=== PATIENT | male | born 1970 | race Caucasian/White ===

== ENCOUNTER 2021-07-04 17:33 | Inpatient (IN) | payer MEDICAID, SELFPAY ==
--- NOTE | ~2021-07-04 | US_ITS ---
EXAMINATION: US VENOUS ULTRASOUND WITH DOPPLER LOWER EXTREMITY, BILATERAL CLINICAL INFORMATION: Bilateral leg swelling COMPARISON: None TECHNIQUE: Ultrasound of the deep veins is performed from the hip to the calf with compression sonography and color and pulse Doppler assessment. Spectral analysis with color-flow imaging is performed. FINDINGS: RIGHT: There is normal venous compression and respiratory variation and augmented flow. The visualized common femoral vein, superficial femoral vein, profunda femoral vein, popliteal vein, and the trifurcation region shows no evidence of deep venous thrombosis. There is no significant popliteal fossa cyst. LEFT: There is normal venous compression and respiratory variation and augmented flow. The visualized common femoral vein, superficial femoral vein, profunda femoral vein, popliteal vein, and the trifurcation region shows no evidence of deep venous thrombosis. There is no significant popliteal fossa cyst. If the patient's symptoms persist, followup ultrasound in 5 days 7 days might be of value to exclude proximal propagation from a non-visualized calf vein. US/US venous duplex LE BI IMPRESSION: No DVT demonstrated in either lower extremity.
--- NOTE | ~2021-07-04 | XR_ITS ---
EXAMINATION: XR CHEST CLINICAL INFORMATION: Irregular heart rate. COMPARISON: None TECHNIQUE: 2 AP views of the chest are submitted. FINDINGS: No significant abnormality is noted involving the heart, lungs, mediastinum, bony thorax or soft tissues. XR/XR chest 1V IMPRESSION: Unremarkable examination.
[2021-07-04 17:42] VITALS: BP 140/95; PULSE 103; RESP 18; TEMP 36.3; O2SAT 97; BMI 36.4
--- NOTE | 2021-07-04 17:47 | ECG_ITS ---
Test Reason : HEART RATE Blood Pressure : / mmHG Vent. Rate : 113 BPM Atrial Rate : 000 BPM P-R Int : 000 ms QRS Dur : 094 ms QT Int : 364 ms P-R-T Axes : 000 176 039 degrees QTc Int : 499 ms Atrial fibrillation with rapid ventricular response Right axis deviation Abnormal ECG No previous ECGs available Referred By: Generic ED Physician Electronically Signed By:Celio Ndiaye
[2021-07-04 18:02] LABS: MANUAL DIFF FLAG NO
[2021-07-04 18:05] LABS: Basophils Percent Auto 0.2 % (0-2); Eosinophils Absolute Auto 0.3 X10*3/uL (0.0-0.4); Eosinophils Percent Auto 3.8 % (0-4); Hematocrit 46.4 % (42.0-52.0); Hemoglobin 15.3 g/dl (14.0-18.0); Imm Gran Abs Auto 0.02 X10*3/uL (0.00-0.03); Imm Gran Pct Auto 0.2 % (0.0-0.4); Lymphocytes Absolute Auto 1.7 X10*3/uL (1.2-4.9); Lymphocytes Percent Auto 20.1 % (20-40); Mean Corpuscular Hemoglobin 32.2 pg (27.0-33.0); Mean Corpuscular Volume 97.7 fL (80.0-98.0); Mean Platelet Volume 9.5 fL (9.4-12.4); Monocytes Absolute Auto 0.8 X10*3/uL (0.1-1.2); Monocytes Percent Auto 9.8 % (2-11); Neutrophils Absolute Auto 5.5 x10*3/uL (2.0-8.3); Neutrophils Percent Auto 65.9 % (45-73); Platelet Count 184 X10*3/uL (160-400); Red Blood Count 4.75 X10*6/uL (4.60-5.80); Red Cell Distribution Width 13.9 % (11.0-16.0); White Blood Count 8.4 X10*3/uL (4.8-10.8)
--- NOTE | 2021-07-04 18:14 | ED.ARRPALP ---
HPI - Arrhythmia/Palpitations General Chief Complaint: Arrhythmia/Palpitations Stated Complaint: feet swollen Time Seen by Provider: 07/04/21 18:06 Source: patient Mode of arrival: ambulatory Limitations: no limitations History of Present Illness HPI narrative: 51-year-old male presents emergency department complaining of bilateral foot swelling. Patient has not seen a doctor for 20 or 30 years he states that his girlfriend told he need to come in to be evaluated. Patient states he has noticed swelling has increased he is now having some shortness of breath at night that wakes him up sleep. He denies fevers or chills on arrival patient was found to be in AFib but was not terribly tachycardic in the 1 100s to 110s. 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 Related Data Home Medications Medication Instructions Recorded Confirmed diphenhydramine HCl 25 mg capsule 25 mg PO BEDTIME PRN 07/04/21 07/04/21 (Benadryl) melatonin 5 mg tablet 35 mg PO BEDTIME PRN 07/04/21 07/04/21 Allergies Allergy/AdvReac Type Severity Reaction Status Date / Time No Known Allergies Allergy Verified 07/04/21 17:41 Review of Systems Review of Systems: Review of systems: General: Patient denies any fever chills recent illness or falls Musculoskeletal: Denies back pain or body aches or other injuries HEENT: denies headache, runny nose, ear pain Respiratory: denies shortness of breath, cough Cardiovascular: no chest pain or palpitations : denies dysuria, frequency Abdomen: no nausea vomiting denies abdominal pain Extremities: Bilateral lower leg swelling, no pain Skin: no diaphoresis Yes all other systems are reviewed and are negative PMFSH Social History Social History Advance Directives: No Advance Directives Information Provided: No Physical Exam Vital Signs: Vital Signs: Last Vital Signs Temp 98.5 F 07/04/21 20:07 Pulse 94 07/04/21 20:07 Resp 24 H 07/04/21 20:07 BP 132/92 H 07/04/21 20:07 Pulse Ox 97 07/04/21 20:07 BMI result Body Mass Index 36.4 General: Well-appearing well-nourished in no signs of distress HEENT: Normocephalic atraumatic Neck: No signs of JVD, no masses no tenderness or lymphadenopathy Cardiovascular: Regular rate and rhythm Respiratory: Clear to auscultation bilaterally Abdomen: Soft nontender no masses . Extremities: Normal pedal pulses 2+ edema bilaterally from the foot to knee Skin: Dry warm no rashes Back: No tenderness full ROM MDM - Arrhythmia/Palpitations MDM Narrative Medical decision making narrative: Concern for peripheral edema likely chronic patient will likely benefit from getting compression stockings I will give patient some Lasix while he is here patient has also been found to be in AFib but is heart rate isn't elevated I will give the patient some Xarelto and discuss the case with Cardiology I will get a chest x-ray and labs. Xr is unremarkble but patient is still in afib. He also has a mildly elevated BNP. I touched base with Cardiology who agrees the patient would benefit from getting a ECHO to rule out clot and establish his ejection fraction with the lower extremity edema. I explained this to the patient who agrees I will admit to medicine. Medical Records Attestation: I reviewed the patient's medical records. Lab Data Attestation: I reviewed the patient's lab results. Result diagrams: 07/04/21 17:57 07/04/21 17:57 Labs: Lab Results 07/04/21 07/04/21 07/04/21 Range/Units 17:57 17:57 17:57 WBC 8.4 (4.8-10.8) X10*3/uL RBC 4.75 (4.60-5.80) X10*6/uL Hgb 15.3 (14.0-18.0) g/dl Hct 46.4 (42.0-52.0) % MCV 97.7 (80.0-98.0) fL MCH 32.2 (27.0-33.0) pg MCHC 33.0 (31.0-36.0) g/dl RDW 13.9 (11.0-16.0) % Plt Count 184 (160-400) X10*3/uL MPV 9.5 (9.4-12.4) fL Immature Gran % (Auto) 0.2 (0.0-0.4) % Neut % (Auto) 65.9 (45-73) % Lymph % (Auto) 20.1 (20-40) % [place] % (Auto) 9.8 (2-11) % Eos % (Auto) 3.8 (0-4) % Baso % (Auto) 0.2 (0-2) % Lymph # (Auto) 1.7 (1.2-4.9) X10*3/uL [place] # (Auto) 0.8 (0.1-1.2) X10*3/uL Eos # (Auto) 0.3 (0.0-0.4) X10*3/uL Baso # (Auto) 0.0 (0.0-0.2) X10*3/uL Abs Immat Gran (auto) 0.02 (0.00-0.03) X10*3/uL Absolute Neuts (auto) 5.5 (2.0-8.3) x10*3/uL Absolute Nucleated RBC 0.000 (0.0-0.012) X10*3/uL Nucleated RBC % (auto) 0.0 (0.0-0.2) /100WBC Sodium 140 (135-145) mmol/L Potassium 5.0 (3.3-5.1) mmol/L Chloride 108 (96-108) mmol/L Carbon Dioxide 27 (22-29) mmol/L Anion Gap 10 L (12-20) BUN 11 (9-16) mg/dL Creatinine 0.80 (0.5-1.4) mg/dL Estim Creat Clear Calc 151.7 Estimated GFR > 60 Random Glucose 103 (60-115) mg/dL Calcium 9.2 (8.4-10.2) mg/dL Troponin I High Sens < 3.5 (<3.5-35.0) ng/L B-Natriuretic Peptide (<100) pg/mL COVID-19 (NADIRA) (Negative) COVID-19 Clin Com 07/04/21 07/04/21 Range/Units 18:21 18:21 WBC (4.8-10.8) X10*3/uL RBC (4.60-5.80) X10*6/uL Hgb (14.0-18.0) g/dl Hct (42.0-52.0) % MCV (80.0-98.0) fL MCH (27.0-33.0) pg MCHC (31.0-36.0) g/dl RDW (11.0-16.0) % Plt Count (160-400) X10*3/uL MPV (9.4-12.4) fL Immature Gran % (Auto) (0.0-0.4) % Neut % (Auto) (45-73) % Lymph % (Auto) (20-40) % [place] % (Auto) (2-11) % Eos % (Auto) (0-4) % Baso % (Auto) (0-2) % Lymph # (Auto) (1.2-4.9) X10*3/uL [place] # (Auto) (0.1-1.2) X10*3/uL Eos # (Auto) (0.0-0.4) X10*3/uL Baso # (Auto) (0.0-0.2) X10*3/uL Abs Immat Gran (auto) (0.00-0.03) X10*3/uL Absolute Neuts (auto) (2.0-8.3) x10*3/uL Absolute Nucleated RBC (0.0-0.012) X10*3/uL Nucleated RBC % (auto) (0.0-0.2) /100WBC Sodium (135-145) mmol/L Potassium (3.3-5.1) mmol/L Chloride (96-108) mmol/L Carbon Dioxide (22-29) mmol/L Anion Gap (12-20) BUN (9-16) mg/dL Creatinine (0.5-1.4) mg/dL Estim Creat Clear Calc Estimated GFR Random Glucose (60-115) mg/dL Calcium (8.4-10.2) mg/dL Troponin I High Sens (<3.5-35.0) ng/L B-Natriuretic Peptide 316 H (<100) pg/mL COVID-19 (NADIRA) Negative (Negative) COVID-19 Clin Com See Note ECG Data Attestation: I personally reviewed and interpreted this ECG as follows: ECG interpretation date: 07/04/21 Prior ECG tracings: not available for review Interpretation: Rate 113 atrial fibrillation with RVR Discharge Plan Discharge Clinical Impression: Atrial fibrillation, Bilateral edema of lower extremity Patient Disposition: Admitted As Inpatient Prescriptions: No Action diphenhydramine HCl [Benadryl] 25 mg Capsule 25 mg PO BEDTIME PRN (Reason: Insomnia) 0RF melatonin 5 mg Tablet 35 mg PO BEDTIME PRN (Reason: Insomnia) 0RF
[2021-07-04 18:17] LABS: Anion Gap 10 (12-20); Blood Urea Nitrogen 11 mg/dL (9-16); Calcium 9.2 mg/dL (8.4-10.2); Carbon Dioxide 27 mmol/L (22-29); Chloride 108 mmol/L (96-108); Creatinine Clr Calc Pharmacy 151.7; Estimated Glomerular Filt Rate > 60; Glucose Random 103 mg/dL (60-115); Sodium 140 mmol/L (135-145)
[2021-07-04 18:21] VITALS: BP 138/91; PULSE 104; RESP 20; O2SAT 98
[2021-07-04 18:22] LABS: Troponin-I High Sensitivity < 3.5 ng/L (<3.5-35.0)
--- NOTE | 2021-07-04 18:24 | PC.NURSE ---
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 IV+. RN Kathy medicating pt at this time.
[2021-07-04] MEDS: Furosemide 20 MG/2 ML VIAL IVPUSH (18:25)
[2021-07-04] MEDS: Rivaroxaban 20 MG TABLET PO (18:26)
[2021-07-04 18:45] LABS: COVID-19 Test Negative (Negative); IDNOW Serial# 55D5AD1C
[2021-07-04 19:10] LABS: B Type Natriuretic Peptide 316 pg/mL (<100)
--- NOTE | 2021-07-04 19:13 | PHA.MEDREC ---
Pharmacy Consult ? Medication Reconciliation Pharmacy has completed the medication reconciliation. Reconfirmed with pt, takes melatonin 35 mg (7 tabs of 5 mg)
[2021-07-04 20:07] VITALS: BP 132/92; PULSE 94; RESP 24; TEMP 36.9; O2SAT 97
[2021-07-04 20:58] LABS: Thyroid Stimulating Hormone 4.58 uIU/mL (0.32-4.0)
--- NOTE | 2021-07-04 21:56 | PM.IMHP ---
History of Present Illness Date of Service: 07/04/21 Chief Complaint: SOB 51-year-old male with a past medical history of tobacco dependence, alcohol abuse presented to the hospital with a chief complaint of bilateral leg swelling. Patient reports that over the past 2 weeks he has been having bilateral leg swelling assist with mild pain; denies any falls or trauma. Patient reports that he is also noticing shortness of breath especially when lying flat; has to get a couple times to take Breath. Denies any cough or sputum production. Denies any travel or sick contacts Denies any tick bites Mentions that he drinks alcohol about 3-4 shots of vodka every day last drink was about 4 days ago Denies any concerns for withdrawal. Also reports he smokes cigarettes. Denies any numbness tingling or focal weakness. Review of all other systems is negative except mentioned above ER course: Per ER team patient noted to have 2+ pitting edema; also on EKG noted to have AFib with mild RVR; Discussed with Cardiology, recommended admission for further evaluation. [facility] Social History Advance Directives: No Advance Directives Information Provided: No Meds Allergies Allergy/AdvReac Type Severity Reaction Status Date / Time No Known Allergies Allergy Verified 07/04/21 17:41 Active Medications: Current Medications Acetaminophen (Acetaminophen 325 Mg Tablet) 650 mg PO Q6H PRN PRN Reason: Pain, Mild (Pain Scale 1-3) Enoxaparin Sodium (Enoxaparin Sodium 40 Mg/0.4 Ml Syringe) 40 mg SUBCUT Q24H CRISTI Furosemide (Furosemide 20 Mg/2 Ml Vial) 20 mg IVPUSH DAILY CRISTI; Protocol Hydromorphone HCl (Hydromorphone Hcl 1 Mg/Ml Syringe) 0.5 mg IVPUSH Q4H PRN; Protocol PRN Reason: Pain, Severe (Pain Scale 7-10) Melatonin (Melatonin 3 Mg Tablet) 6 mg PO BEDTIME PRN PRN Reason: Insomnia Metoprolol Tartrate (Metoprolol Tartrate 12.5 Mg Halftab) 12.5 mg PO BID CRISTI; Protocol Pharmacy Consult (Consult Rx Perform Med Rec) 1 each MISCELLANE ONCE PRN PRN Reason: Consult order Senna (Sennosides 8.6 Mg Tablet) 17.2 mg PO BEDTIME PRN PRN Reason: Constipation Sodium Chloride (0.9 % Sodium Chloride Flush 3 Ml Syringe) 3 ml IVFLUSH QSHIFT [facility] Home Medications Medication Instructions Recorded Confirmed Last Taken Type diphenhydramine HCl 25 mg capsule 25 mg PO BEDTIME PRN 07/04/21 07/04/21 07/02/21 History (Benadryl) melatonin 5 mg tablet 35 mg PO BEDTIME PRN 07/04/21 07/04/21 07/02/21 History Physical Exam Vital Signs and Narrative: Vital Signs: Last Vital Signs Temp 98.5 F 07/04/21 20:07 Pulse 94 07/04/21 20:07 Resp 24 H 07/04/21 20:07 BP 132/92 H 07/04/21 20:07 Pulse Ox 97 07/04/21 20:07 BMI result Body Mass Index 36.4 Results Labs CBC and Chem 7: 07/04/21 17:57 07/04/21 17:57 Labs: Laboratory Results - last 24 hr 07/04/21 07/04/21 07/04/21 17:57 17:57 17:57 MCV 97.7 MCH 32.2 MCHC 33.0 RDW 13.9 Plt Count 184 MPV 9.5 Immature Gran % (Auto) 0.2 Neut % (Auto) 65.9 Lymph % (Auto) 20.1 [place] % (Auto) 9.8 Eos % (Auto) 3.8 Baso % (Auto) 0.2 Lymph # (Auto) 1.7 [place] # (Auto) 0.8 Eos # (Auto) 0.3 Baso # (Auto) 0.0 Abs Immat Gran (auto) 0.02 Absolute Neuts (auto) 5.5 Absolute Nucleated RBC 0.000 Nucleated RBC % (auto) 0.0 Anion Gap 10 L Estim Creat Clear Calc 151.7 Estimated GFR > 60 Random Glucose 103 Calcium 9.2 Troponin I High Sens < 3.5 B-Natriuretic Peptide TSH 4.58 H COVID-19 (NDAIRA) COVID-19 Clin Com 07/04/21 07/04/21 18:21 18:21 MCV MCH MCHC RDW Plt Count MPV Immature Gran % (Auto) Neut % (Auto) Lymph % (Auto) [place] % (Auto) Eos % (Auto) Baso % (Auto) Lymph # (Auto) [place] # (Auto) Eos # (Auto) Baso # (Auto) Abs Immat Gran (auto) Absolute Neuts (auto) Absolute Nucleated RBC Nucleated RBC % (auto) Anion Gap Estim Creat Clear Calc Estimated GFR Random Glucose Calcium Troponin I High Sens B-Natriuretic Peptide 316 H TSH COVID-19 (NADIRA) Negative COVID-19 Clin Com See Note Imaging Radiologist's Impressions: Impressions Chest X-Ray 07/04/21 18:31 IMPRESSION: Unremarkable examination. Assessment and Plan (1) Atrial fibrillation: Status: Acute (2) Bilateral edema of lower extremity: Status: Acute Plan 51-year-old male with a past medical history of tobacco dependence, alcohol abuse presented to the hospital with a chief complaint of bilateral leg swelling. Noted to have new onset AFib/new onset CHF. New onset AFib: Patient heart rate slightly elevated; Will start the patient on metoprolol 12.5 mg b.i.d. monitor on telemetry Cycle cardiac enzymes New onset CHF: Patient reports orthopnea: Noted to have 2+ pitting edema and mild JVD. Echocardiogram Daily weights and I's and O's Will give the patient on Lasix 20 mg IV daily Will also obtain venous duplex Will obtain TSH, hemoglobin A1c, lipid profile cardiology consult History of tobacco dependence: Counseled on smoking cessation History of alcohol abuse: Last drink was 4 days ago. Currently no signs of withdrawal. DVT prophylaxis: Lovenox Code status: Full code Quality Stroke Does the patient have a stroke diagnosis?: No VTE Prior VTE?: No VTE Risk Level:: Medical - moderate - high VTE Device Contraindication: Treatment Not Indicated VTE Drug Contraindication: N/A - Med Ordered
[2021-07-04 22:40] VITALS: BP 135/90; PULSE 91; RESP 20; O2SAT 99
[2021-07-04] MEDS: Enoxaparin Sodium 40 MG/0.4 ML SYRINGE SUBCUT (22:41)
[2021-07-04] MEDS: Metoprolol Tartrate 12.5 MG HALFTAB PO (22:41)
[2021-07-05] VITALS (8 sets, daily range): BP systolic 110–127; BP diastolic 67–88; PULSE 69–105; RESP 16–26; TEMP 36.7–36.8; O2SAT 94–96
[2021-07-05] MEDS: 0.9 % Sodium Chloride Flush 3 ML SYRINGE IVFLUSH ×3 (00:39→16:13)
[2021-07-05 06:20] LABS: MANUAL DIFF FLAG NO
[2021-07-05 06:23] LABS: Basophils Percent Auto 0.5 % (0-2); Eosinophils Absolute Auto 0.3 X10*3/uL (0.0-0.4); Hematocrit 44.3 % (42.0-52.0); Imm Gran Abs Auto 0.02 X10*3/uL (0.00-0.03); Imm Gran Pct Auto 0.2 % (0.0-0.4); Lymphocytes Absolute Auto 1.7 X10*3/uL (1.2-4.9); Lymphocytes Percent Auto 20.7 % (20-40); Mean Corpuscular HGB Conc 33.9 g/dl (31.0-36.0); Mean Corpuscular Hemoglobin 32.8 pg (27.0-33.0); Mean Corpuscular Volume 96.7 fL (80.0-98.0); Mean Platelet Volume 9.9 fL (9.4-12.4); Monocytes Absolute Auto 0.8 X10*3/uL (0.1-1.2); Monocytes Percent Auto 9.9 % (2-11); Neutrophils Absolute Auto 5.5 x10*3/uL (2.0-8.3); Neutrophils Percent Auto 65.7 % (45-73); Platelet Count 190 X10*3/uL (160-400); Red Blood Count 4.58 X10*6/uL (4.60-5.80); Red Cell Distribution Width 13.8 % (11.0-16.0); White Blood Count 8.4 X10*3/uL (4.8-10.8)
[2021-07-05 06:37] LABS: Cholesterol 169 mg/dL; HDL Cholesterol 39 mg/dL; LDL Cholesterol Calculated 116 mg/dl; Triglycerides 70 mg/dL
[2021-07-05 06:39] LABS: Anion Gap 14 (12-20); Blood Urea Nitrogen 11 mg/dL (9-16); Calcium 8.8 mg/dL (8.4-10.2); Carbon Dioxide 21 mmol/L (22-29); Chloride 108 mmol/L (96-108); Creatinine Clr Calc Pharmacy 161.8; Estimated Glomerular Filt Rate > 60; Glucose Random 91 mg/dL (60-115); Potassium 3.9 mmol/L (3.3-5.1); Sodium 139 mmol/L (135-145)
[2021-07-05 06:40] LABS: Estimated Average Glucose 100 mg/dL; Hemoglobin A1c % 5.1 %
--- NOTE | 2021-07-05 07:00 | CA_ITS ---
Transthoracic Echocardiogram Patient (Last, First, Middle): Stef Cordova A Gender: Male Date of : 1970 Age: 51 Procedure Date: 07/05/2021 Procedure Type: Transthoracic Echocardiogram Location: ER Height: 185.42 cm Weight: 128.37 kg BSA: 2.49 m2 Heart Rate: bpm BP: 122 / 82 mmHg Senior It Engineer: YVONNE Referring MD: Arik Leiva MD Symptoms: chf Study Quality: Fair/Contrast Conclusions: - There is normal left ventricular wall thickness. The left ventricular systolic function is severely decreased. The visually estimated ejection fraction is between 20-25%. - left ventricle is dilated. - Mildly increased right ventricular cavity size. There is mildly decreased right ventricular systolic function. - The left atrium is severely dilated. The right atrium is moderately dilated. Findings Procedure Information Contrast agent, definity, is being given per protocol without apparent complications. Left Ventricle There is normal left ventricular wall thickness. The left ventricular systolic function is severely decreased. The visually estimated ejection fraction is between 20-25%. There is severe global hypokinesis. Diastolic function is indeterminate on the basis of available data. left ventricle is dilated. Right Ventricle Mildly increased right ventricular cavity size. There is mildly decreased right ventricular systolic function. Atria The left atrium is severely dilated. The right atrium is moderately dilated. Aortic Valve There is a normal trileaflet aortic valve. There is mild calcification of the aortic valve. There is no aortic valve stenosis. There is no aortic valve regurgitation. Mitral Valve Normal mitral valve structure and function. There is no mitral valve regurgitation. There is no mitral valve stenosis. Pulmonic Valve Normal pulmonic valve structure and function. There is trace pulmonic valve regurgitation. Tricuspid Valve Normal tricuspid valve structure. There is trace tricuspid valve regurgitation. Moderately elevated right atrial pressure. There is no evidence of pulmonary hypertension. Great Vessels There is mild dilatation of the sinuses of Valsalva and mild dilatation of the ascending aorta. The visualized portions of the pulmonary artery and branches are normal. Venous The inferior vena cava is normal in size and collapses less than 50% with inspiration. Pericardium/Pleural There is no evidence of pericardial effusion. Prior Study Comparison No prior study available for comparison. Measurements 2D Linear Measurements IVSd: 1.07 0.6-0.9/0.6-1.0 cm LVIDd: 6.25 3.9-5.3/4.2-5.9 cm LVIDd Index: 2.51 2.4-3.2/2.2-3.1 cm/m2 LVIDs: 4.95 2.0-3.6 cm LVPWd: 1.07 0.7-1.1 cm LA Diam: 3.80 2.7-3.8/3.0-4.0 cm LAIDs Index: 1.53 1.5-2.3 cm/m2 LV Mass: 360.31 67-162/88-224 g LV Mass Index: 144.70 43-95/49-115 g/m2 LVOT Diam: 2.40 3.0+(-)1.3 cm 2D Systolic Function EF 4C: 36.00 >55% EF 2C: 26.50 >55% EF BiP: 30.10 >55% Aortic Valve AoV Pk Stevie: 1.42 AoV Mn Stevie: 1.05 AoV VTI: 0.27 AoV Pk Grad: 8.00 Aov Mn Grad: 5.00 NGA Cont.VTI: 1.44 LVOT LVOT Pk Stevie: 0.48 LVOT Mn Stevie: 0.30 LVOT VTI: 0.09 LVOT Pk Grad: 1.00 LVOT Mn Grad: 0.00 LVOT Diam: 2.40 LVOT Area: 4.52 Right Ventricle TAPSE (mm): 17.30 TVS' Stevie: 9.46 Tricuspid Valve TR Pk Stevie: 2.13 TR Pk Grad: 18.00 RA Press: 8.00 RVSP: 26.00 Great Vessels Aorta Sinus of Valsalva: 4.27 2.0-3.[address] [place]: 3.83 1.7-3.4 cm Ao Asc: 3.90 2.1-3.4 cm Ao Arch: 2.80 Updated in Other Vendor System with Status of Final Celio Ndiaye MD electronically signed on 07/05/2021 9:13:59 PM with status of Final
[2021-07-05] MEDS: Metoprolol Tartrate 12.5 MG HALFTAB PO ×2 (07:39→21:25)
[2021-07-05] MEDS: Furosemide 20 MG/2 ML VIAL IVPUSH (07:40)
--- NOTE | 2021-07-05 07:45 | P.PNIM_ITS ---
Subjective Subjective Date of Service: 07/05/21 Interval History: chf etiology unlcear, afib new Review of Systems Heart rate is improving, gets short of breath with exertion still, denies any chest pain or or abdominal pain or fever or chills. Physical Exam Vital Signs: Vital Signs: Last Vital Signs Temp 98.0 F 07/05/21 06:00 Pulse 96 07/05/21 07:38 Resp 16 07/05/21 07:38 BP 125/88 07/05/21 07:38 Pulse Ox 96 07/05/21 07:38 BMI result Body Mass Index 36.4 Appearance: Alert.? Oriented X3.? not in distress.? cvs: rrr, [id number] . res: clear to auscultation ,no rhonchii or wheezing abd: no rebound or guarding ,nt, bs present. ext pulses present , no cyanosis ,leg edema 1+. neuro: axo3 , nonfocal. Objective Data Active Medications Acetaminophen (Acetaminophen 325 Mg Tablet) 650 mg PO Q6H PRN PRN Reason: Pain, Mild (Pain Scale 1-3) Enoxaparin Sodium (Enoxaparin Sodium 40 Mg/0.4 Ml Syringe) 40 mg SUBCUT Q24H [facility] Last Admin: 07/04/21 22:41 Dose: 40 mg Documented by: SADIE Furosemide (Furosemide 20 Mg/2 Ml Vial) 20 mg IVPUSH DAILY [facility]; Protocol Last Admin: 07/05/21 07:40 Dose: 20 mg Documented by: NEDRA Hydromorphone HCl (Hydromorphone Hcl 1 Mg/Ml Syringe) 0.5 mg IVPUSH Q4H PRN; Protocol PRN Reason: Pain, Severe (Pain Scale 7-10) Melatonin (Melatonin 3 Mg Tablet) 6 mg PO BEDTIME PRN PRN Reason: Insomnia Metoprolol Tartrate (Metoprolol Tartrate 12.5 Mg Halftab) 12.5 mg PO BID [facility]; Protocol Last Admin: 07/05/21 07:39 Dose: 12.5 mg Documented by: NEDRA Pharmacy Consult (Consult Rx Perform Med Rec) 1 each MISCELLANE ONCE PRN PRN Reason: Consult order Senna (Sennosides 8.6 Mg Tablet) 17.2 mg PO BEDTIME PRN PRN Reason: Constipation Sodium Chloride (0.9 % Sodium Chloride Flush 3 Ml Syringe) 3 ml IVFLUSH QSHIFT [facility] Last Admin: 07/05/21 07:41 Dose: 3 ml Documented by: NEDRA Labs CBC & Chem 7: 07/05/21 05:47 07/05/21 05:47 Labs: Laboratory Results - last 24 hr 07/04/21 07/04/21 07/04/21 17:57 17:57 17:57 MCV 97.7 MCH 32.2 MCHC 33.0 RDW 13.9 Plt Count 184 MPV 9.5 Immature Gran % (Auto) 0.2 Neut % (Auto) 65.9 Lymph % (Auto) 20.1 [place] % (Auto) 9.8 Eos % (Auto) 3.8 Baso % (Auto) 0.2 Lymph # (Auto) 1.7 [place] # (Auto) 0.8 Eos # (Auto) 0.3 Baso # (Auto) 0.0 Abs Immat Gran (auto) 0.02 Absolute Neuts (auto) 5.5 Absolute Nucleated RBC 0.000 Nucleated RBC % (auto) 0.0 Anion Gap 10 L Estim Creat Clear Calc 151.7 Estimated GFR > 60 Random Glucose 103 Estimat Average Glucose Hemoglobin A1c % Calcium 9.2 Troponin I High Sens < 3.5 B-Natriuretic Peptide Triglycerides Cholesterol LDL Cholesterol, Calc HDL Cholesterol TSH 4.58 H COVID-19 (NADIRA) COVID-19 Clin Com 07/04/21 07/04/21 07/05/21 18:21 18:21 05:47 MCV 96.7 MCH 32.8 MCHC 33.9 RDW 13.8 Plt Count 190 MPV 9.9 Immature Gran % (Auto) 0.2 Neut % (Auto) 65.7 Lymph % (Auto) 20.7 [place] % (Auto) 9.9 Eos % (Auto) 3.0 Baso % (Auto) 0.5 Lymph # (Auto) 1.7 [place] # (Auto) 0.8 Eos # (Auto) 0.3 Baso # (Auto) 0.0 Abs Immat Gran (auto) 0.02 Absolute Neuts (auto) 5.5 Absolute Nucleated RBC 0.000 Nucleated RBC % (auto) 0.0 Anion Gap Estim Creat Clear Calc Estimated GFR Random Glucose Estimat Average Glucose Hemoglobin A1c % Calcium Troponin I High Sens B-Natriuretic Peptide 316 H Triglycerides Cholesterol LDL Cholesterol, Calc HDL Cholesterol TSH COVID-19 (NADIRA) Negative COVID-19 Clin Com See Note 07/05/21 07/05/21 07/05/21 05:47 05:47 05:47 MCV MCH MCHC RDW Plt Count MPV Immature Gran % (Auto) Neut % (Auto) Lymph % (Auto) [place] % (Auto) Eos % (Auto) Baso % (Auto) Lymph # (Auto) [place] # (Auto) Eos # (Auto) Baso # (Auto) Abs Immat Gran (auto) Absolute Neuts (auto) Absolute Nucleated RBC Nucleated RBC % (auto) Anion Gap 14 Estim Creat Clear Calc 161.8 Estimated GFR > 60 Random Glucose 91 Estimat Average Glucose 100 Hemoglobin A1c % 5.1 Calcium 8.8 Troponin I High Sens B-Natriuretic Peptide Triglycerides 70 Cholesterol 169 LDL Cholesterol, Calc 116 HDL Cholesterol 39 TSH COVID-19 (NADIRA) COVID-19 Clin Com Assessment and Plan (1) Acute congestive heart failure: Status: Acute (2) Atrial fibrillation: Status: Acute (3) Bilateral edema of lower extremity: Status: Acute Plan ?51-year-old male with a past medical history of tobacco dependence, alcohol abuse presented to the hospital with a chief complaint of bilateral leg swelling.? ? Noted to have new onset AFib/new onset CHF.? New onset AFib: Patient heart rate slightly elevated; continue on metoprolol 12.5 mg b.i.d., given IV digoxin 1 dose and also started him on p.o. digoxin. Troponin x1 negative Cardiology evaluation noted-continue beta-elmer, digoxin, added Xarelto New onset CHF possible systolic: Patient reports orthopnea:? Noted to have 2+ pitting edema and mild JVD.? Echocardiogram-? Low EF preliminary Daily weights and I's and O's adjutsed Lasix 40 mg IV daily venous duplex-neg,mild elevated tsh, free T4 for is normal, T3 pending hemoglobin [id number], lipid profile noted -may need to add statin after checking lft's in am ?cardiology eval noted: Continue Lasix, and added Entresto. may need KAPIL cardioversion outpatient History of tobacco dependence: Counseled on smoking cessation History of alcohol abuse:? Last drink was 4 days ago.? Currently no signs of withdrawal. ?DVT prophylaxis: Lovenox . Need for inpatient: AFib, CHF exacerbation. Quality Stroke Does the patient have a stroke diagnosis?: No VTE Prior VTE?: No VTE Risk Level:: Medical - moderate - high VTE Device Contraindication: Treatment Not Indicated VTE Drug Contraindication: N/A - Med Ordered
[2021-07-05 08:29] LABS: Free T4 (Free Thyroxine) 1.05 ng/dL (0.71-1.85)
--- NOTE | 2021-07-05 10:33 | MHC.CM.PN ---
Male 51 DX A-fib HF He lives with family. He is independent with all functional mobility. He does not have a PCP. [facility] MD pamphlet provided. A financial consult had been placed. Pt has been contacted this morning be Financial leasing director, Teresa Ocampo. DP home with follow up Cardiology and new PCP. Patient will arrange for transportation. HCP education was provided; however, the patient declined to document a HCP. He has not been vaccinated.
--- NOTE | 2021-07-05 12:20 | P.CONCA_ITS ---
History of Present Illness History of Present Illness Date of Service: 07/05/21 Requesting physician: Patti Walters Chief complaint: new onset CHF Narrative: 51-year-old gentleman who is presenting with peripheral edema, orthopnea and PND. He also noted to have AFib with RVR. He did not have any palpitations. He started noticing lower extremity edema and shortness of breath 2 weeks ago. He has been drinking alcohol for 3 years and drinks 5-6 what car shorts at nighttime. Also a smoker. He has been started on diuretics and is feeling little better. Clinically still volume overloaded. [facility] Social History Social History Advance Directives: No Advance Directives Information Provided: No service: No Current occupational status: unemployed Meds Allergies Allergy/AdvReac Type Severity Reaction Status Date / Time No Known Allergies Allergy Verified 07/04/21 17:41 Active Medications: Current Medications Acetaminophen (Acetaminophen 325 Mg Tablet) 650 mg PO Q6H PRN PRN Reason: Pain, Mild (Pain Scale 1-3) Enoxaparin Sodium (Enoxaparin Sodium 40 Mg/0.4 Ml Syringe) 40 mg SUBCUT Q24H [facility] Last Admin: 07/04/21 22:41 Dose: 40 mg Documented by: Furosemide (Furosemide 20 Mg/2 Ml Vial) 20 mg IVPUSH DAILY [facility]; Protocol Last Admin: 07/05/21 07:40 Dose: 20 mg Documented by: Hydromorphone HCl (Hydromorphone Hcl 1 Mg/Ml Syringe) 0.5 mg IVPUSH Q4H PRN; Protocol PRN Reason: Pain, Severe (Pain Scale 7-10) Melatonin (Melatonin 3 Mg Tablet) 6 mg PO BEDTIME PRN PRN Reason: Insomnia Metoprolol Tartrate (Metoprolol Tartrate 12.5 Mg Halftab) 12.5 mg PO BID [facility]; Protocol Last Admin: 07/05/21 07:39 Dose: 12.5 mg Documented by: Pharmacy Consult (Consult Rx Perform Med Rec) 1 each MISCELLANE ONCE PRN PRN Reason: Consult order Senna (Sennosides 8.6 Mg Tablet) 17.2 mg PO BEDTIME PRN PRN Reason: Constipation Sodium Chloride (0.9 % Sodium Chloride Flush 3 Ml Syringe) 3 ml IVFLUSH QSHIFT [facility] Last Admin: 07/05/21 07:41 Dose: 3 ml Documented by: Home Medications Medication Instructions Recorded Confirmed Last Taken Type diphenhydramine HCl 25 mg capsule 25 mg PO BEDTIME PRN 07/04/21 07/04/21 07/02/21 History (Benadryl) melatonin 5 mg tablet 35 mg PO BEDTIME PRN 07/04/21 07/04/21 07/02/21 History Physical Exam Vital Signs: Vital Signs: Last Vital Signs Temp 98.0 F 07/05/21 06:00 Pulse 96 07/05/21 07:38 Resp 16 07/05/21 07:38 BP 125/88 07/05/21 07:38 Pulse Ox 96 07/05/21 07:38 BMI result Body Mass Index 36.4 GENERAL APPEARANCE: in no acute distress, pleasant. NECK: no carotid bruit, + jugular venous distention. SKIN: no suspicious lesions, warm and dry. HEART: no murmurs, irregular rate and rhythm. LUNGS: clear to auscultation bilaterally. ABDOMEN: soft, nontender. EXTREMITIES: no edema. PERIPHERAL PULSES: equal. NEUROLOGIC: No gross deficits, AAO X 3 Objective Labs and Meds Result diagrams: 07/05/21 05:47 07/05/21 05:47 Lab results: Laboratory Results - last 24 hr 07/04/21 07/04/21 07/04/21 17:57 17:57 17:57 WBC 8.4 RBC 4.75 Hgb 15.3 Hct 46.4 MCV 97.7 MCH 32.2 MCHC 33.0 RDW 13.9 Plt Count 184 MPV 9.5 Immature Gran % (Auto) 0.2 Neut % (Auto) 65.9 Lymph % (Auto) 20.1 [place] % (Auto) 9.8 Eos % (Auto) 3.8 Baso % (Auto) 0.2 Lymph # (Auto) 1.7 [place] # (Auto) 0.8 Eos # (Auto) 0.3 Baso # (Auto) 0.0 Abs Immat Gran (auto) 0.02 Absolute Neuts (auto) 5.5 Absolute Nucleated RBC 0.000 Nucleated RBC % (auto) 0.0 Sodium 140 Potassium 5.0 Chloride 108 Carbon Dioxide 27 Anion Gap 10 L BUN 11 Creatinine 0.80 Estim Creat Clear Calc 151.7 Estimated GFR > 60 Random Glucose 103 Estimat Average Glucose Hemoglobin A1c % Calcium 9.2 Troponin I High Sens < 3.5 B-Natriuretic Peptide Triglycerides Cholesterol LDL Cholesterol, Calc HDL Cholesterol TSH 4.58 H Free T4 COVID-19 ([facility]) COVID-19 Clin Com 07/04/21 07/04/21 07/05/21 18:21 18:21 05:47 WBC 8.4 RBC 4.58 L Hgb 15.0 Hct 44.3 MCV 96.7 MCH 32.8 MCHC 33.9 RDW 13.8 Plt Count 190 MPV 9.9 Immature Gran % (Auto) 0.2 Neut % (Auto) 65.7 Lymph % (Auto) 20.7 [place] % (Auto) 9.9 Eos % (Auto) 3.0 Baso % (Auto) 0.5 Lymph # (Auto) 1.7 [place] # (Auto) 0.8 Eos # (Auto) 0.3 Baso # (Auto) 0.0 Abs Immat Gran (auto) 0.02 Absolute Neuts (auto) 5.5 Absolute Nucleated RBC 0.000 Nucleated RBC % (auto) 0.0 Sodium Potassium Chloride Carbon Dioxide Anion Gap BUN Creatinine Estim Creat Clear Calc Estimated GFR Random Glucose Estimat Average Glucose Hemoglobin A1c % Calcium Troponin I High Sens B-Natriuretic Peptide 316 H Triglycerides Cholesterol LDL Cholesterol, Calc HDL Cholesterol TSH Free T4 COVID-19 ([facility]DIRA) Negative COVID-19 Clin Com See Note 07/05/21 07/05/21 07/05/21 05:47 05:47 05:47 WBC RBC Hgb Hct MCV MCH MCHC RDW Plt Count MPV Immature Gran % (Auto) Neut % (Auto) Lymph % (Auto) [place] % (Auto) Eos % (Auto) Baso % (Auto) Lymph # (Auto) [place] # (Auto) Eos # (Auto) Baso # (Auto) Abs Immat Gran (auto) Absolute Neuts (auto) Absolute Nucleated RBC Nucleated RBC % (auto) Sodium 139 Potassium 3.9 D Chloride 108 Carbon Dioxide 21 L Anion Gap 14 BUN 11 Creatinine 0.75 Estim Creat Clear Calc 161.8 Estimated GFR > 60 Random Glucose 91 Estimat Average Glucose 100 Hemoglobin A1c % 5.1 Calcium 8.8 Troponin I High Sens B-Natriuretic Peptide Triglycerides 70 Cholesterol 169 LDL Cholesterol, Calc 116 HDL Cholesterol 39 TSH Free T4 1.05 COVID-19 ([facility]A) COVID-19 Clin Com Imaging Radiologist's impression: Impressions Chest X-Ray 07/04/21 18:31 IMPRESSION: Unremarkable examination. Venous Duplex 07/04/21 22:14 IMPRESSION: No DVT demonstrated in either lower extremity. Assessment and Plan (1) Atrial fibrillation: Status: Acute (2) Acute congestive heart failure: Status: Acute Plan 51-year-old gentleman who is presenting with new onset congestive heart failure and atrial fibrillation. He is rate controlled with low-dose metoprolol right now. Clinically he is volume overloaded. Agree with IV diuretics at this stage . Add Entresto. Add digoxin 125 mcg every other day. ECHO reviewed and will be reported separately but the ejection fraction is moderate to severely reduced. I think the etiology likely is alcohol use. AFib is also confound her and he will need KAPIL cardioversion. He is congested right now and I think we may have to pursue a KAPIL cardioversion as outpatient. Tentative plan is to continue diuresis and add neurohormonal medications and discharge him home. I have advised him not to drink alcohol anymore. I would anticoagulate him despite the fact that his chads Vasc score is not high. He w ill need anticoagulation because he will require KAPIL cardioversion. We will follow along with you. Thank you for allowing me to participate in the care of your patient. Please feel free to contact me if you have any questions. Procedures Date of Service Date of Service: 07/05/21
[2021-07-05] MEDS: Sacubitril/Valsartan 24/26 1 TAB TABLET PO (16:13)
[2021-07-05] MEDS: Digoxin 0.5 MG/2 ML AMPUL 0.25 MG IVPUSH (16:13)
[2021-07-05] MEDS: Rivaroxaban 20 MG TABLET PO (16:14)
[2021-07-05] MEDS: Melatonin 3 MG TABLET 6 MG PO (21:24)
[2021-07-05] MEDS: Acetaminophen 325 MG TABLET 650 MG PO (21:24)
--- NOTE | 2021-07-05 21:29 | PC.NURSE ---
pharmacy consulted about entresto administration bid since pt received it at approx 1600. this RN told to hold entresto as it is too close to prev administered time. HR 88 no distress.
--- NOTE | 2021-07-05 23:12 | PC.NURSE ---
pt up and ambulatory to BR. no c/o SOB, or dizziness. resting in chair in room watching tv
[2021-07-06] VITALS (8 sets, daily range): BP systolic 104–122; BP diastolic 63–94; PULSE 65–121; RESP 16–20; TEMP 36.6–36.9; O2SAT 94–99
[2021-07-06] MEDS: 0.9 % Sodium Chloride Flush 3 ML SYRINGE IVFLUSH ×4 (00:32→20:46)
--- NOTE | 2021-07-06 03:30 | PC.NURSE ---
Assumed care of pt Pt moved to overflow bed 6 for continuity of care Pt ambulatory, gait even and steady Denies any CP/SOB. A. fib on monitor with HR 70s -80s 2+ pitting edema to BLE. No redness/heat Will continue to monitor
[2021-07-06 07:17] LABS: Alanine Aminotransferase 51 U/L (0-40); Albumin Level 3.4 g/dL (3.5-5.0); Alkaline Phosphatase 31 U/L (39-117); Anion Gap 11 (12-20); Aspartate Amino Transferase 23 U/L (5-37); Bilirubin Direct 0.5 mg/dL (0.0-0.5); Bilirubin Total 1.1 mg/dL (0.0-1.0); Blood Urea Nitrogen 11 mg/dL (9-16); Calcium 8.7 mg/dL (8.4-10.2); Carbon Dioxide 23 mmol/L (22-29); Chloride 107 mmol/L (96-108); Estimated Glomerular Filt Rate > 60; Glucose Random 106 mg/dL (60-115); Sodium 137 mmol/L (135-145); Total Protein 6.1 g/dL (6.5-8.0)
[2021-07-06 07:17] LABS: B Type Natriuretic Peptide 349 pg/mL (<100)
[2021-07-06] MEDS: Digoxin 0.125 MG TABLET PO (08:41)
[2021-07-06] MEDS: Furosemide 20 MG/2 ML VIAL 40 MG IVPUSH ×2 (08:41→17:52)
[2021-07-06] MEDS: Metoprolol Tartrate 12.5 MG HALFTAB PO ×2 (08:41→20:45)
[2021-07-06] MEDS: Sacubitril/Valsartan 24/26 1 TAB TABLET PO ×2 (08:42→21:58)
--- NOTE | 2021-07-06 09:02 | PM.PNCARD ---
Subjective Subjective Date of Service: 07/06/21 Interval history: continues to have peripheral edema. Denying orthopnea. Physical Exam Vital Signs: Last Vital Signs Temp 97.8 F 07/06/21 08:38 Pulse 92 07/06/21 08:38 Resp 20 07/06/21 08:38 BP 116/86 07/06/21 08:38 Pulse Ox 95 07/06/21 08:38 BMI result Body Mass Index 36.4 GENERAL APPEARANCE: in no acute distress, pleasant. NECK: no carotid bruit, + jugular venous distention. SKIN: no suspicious lesions, warm and dry. HEART: no murmurs, irregular rate and rhythm. LUNGS: clear to auscultation bilaterally. ABDOMEN: soft, nontender. EXTREMITIES: 1+ edema to knees. PERIPHERAL PULSES: equal. NEUROLOGIC: No gross deficits, AAO X 3 Objective Labs and Meds Result diagrams: 07/05/21 05:47 07/06/21 06:07 Lab results: Laboratory Results - last 24 hr 07/06/21 07/06/21 06:06 06:07 Sodium 137 Potassium 4.0 Chloride 107 Carbon Dioxide 23 Anion Gap 11 L BUN 11 Creatinine 0.74 Estim Creat Clear Calc 164.0 Estimated GFR > 60 Random Glucose 106 Calcium 8.7 Total Bilirubin 1.1 H Direct Bilirubin 0.5 AST 23 ALT 51 H Alkaline Phosphatase 31 L B-Natriuretic Peptide 349 H Total Protein 6.1 L Albumin 3.4 L Progress Note: A&P Assessment and plan (1) Acute congestive heart failure: Status: Acute (2) Atrial fibrillation: Status: Acute Plan 51-year-old gentleman with lower extremity edema, orthopnea and PND. Clinically was in congestive heart failure. Has been on IV diuretics. Continues to be overloaded. Increase the furosemide to 40 mg IV twice daily. Continue digoxin 125 mcg every other day. Same dose of beta-blockers for now. We added Entresto yesterday. Echocardiography has shown severely reduced ejection fraction of 20 to 25%. The LV is mildly dilated. I think this is likely due to alcoholism. I have explained it to him in detail and have advised him to be completely abstinent from alcohol. Would anticoagulate for now because he will need KAPIL cardioversion. We will plan to do this as outpatient. Time Spent With Patient Time: Total time spent is greater than 50% in coordination of care (as documented) at patient's floor/unit and/or counseling patient: Progress Note: Quality Stroke Does the patient have a stroke diagnosis?: No Procedures Date of Service Date of Service: 07/06/21
--- NOTE | 2021-07-06 09:15 | P.PNIM_ITS ---
Subjective Subjective Date of Service: 07/06/21 Interval History: chf Review of Systems Heart rate is improving, gets short of breath with exertion still, denies any chest pain or or abdominal pain or fever or chills. Physical Exam Vital Signs: Vital Signs: Last Vital Signs Temp 97.8 F 07/06/21 08:38 Pulse 92 07/06/21 08:38 Resp 20 07/06/21 08:38 BP 116/86 07/06/21 08:38 Pulse Ox 95 07/06/21 08:38 BMI result Body Mass Index 36.4 Appearance: Alert.? Oriented X3.? not in distress.? cvs: rrr, [id number] . res: clear to auscultation ,no rhonchii or wheezing abd: no rebound or guarding ,nt, bs present. ext pulses present , no cyanosis ,leg edema present. neuro: axo3 , nonfocal. Objective Data Active Medications Acetaminophen (Acetaminophen 325 Mg Tablet) 650 mg PO Q6H PRN PRN Reason: Pain, Mild (Pain Scale 1-3) Last Admin: 07/05/21 21:24 Dose: 650 mg Documented by: BRODIE Digoxin (Digoxin 0.125 Mg Tablet) 0.125 mg PO DAILY [facility] Last Admin: 07/06/21 08:41 Dose: 0.125 mg Documented by: NEDRA Furosemide (Furosemide 20 Mg/2 Ml Vial) 40 mg IVPUSH BID@0900,1800 [facility]; Protocol Hydromorphone HCl (Hydromorphone Hcl 1 Mg/Ml Syringe) 0.5 mg IVPUSH Q4H PRN; Protocol PRN Reason: Pain, Severe (Pain Scale 7-10) Melatonin (Melatonin 3 Mg Tablet) 6 mg PO BEDTIME PRN PRN Reason: Insomnia Last Admin: 07/05/21 21:24 Dose: 6 mg Documented by: BRODIE Metoprolol Tartrate (Metoprolol Tartrate 12.5 Mg Halftab) 12.5 mg PO BID [facility]; Protocol Last Admin: 07/06/21 08:41 Dose: 12.5 mg Documented by: NEDRA Pharmacy Consult (Consult Rx Perform Med Rec) 1 each MISCELLANE ONCE PRN PRN Reason: Consult order Rivaroxaban (Rivaroxaban 20 Mg Tablet) 20 mg PO DAILY@1700 [facility] Last Admin: 07/05/21 16:14 Dose: 20 mg Documented by: NEDRA Sacubitril/Valsartan (Sacubitril/Valsartan 1 Tab Tablet) 1 tab PO BID [facility]; Protocol Last Admin: 07/06/21 08:42 Dose: 1 tab Documented by: NEDRA Senna (Sennosides 8.6 Mg Tablet) 17.2 mg PO BEDTIME PRN PRN Reason: Constipation Sodium Chloride (0.9 % Sodium Chloride Flush 3 Ml Syringe) 3 ml IVFLUSH QSHIFT [facility] Last Admin: 07/06/21 08:41 Dose: 3 ml Documented by: NEDRA Labs CBC & Chem 7: 07/05/21 05:47 07/06/21 06:07 Labs: Laboratory Results - last 24 hr 07/06/21 07/06/21 06:06 06:07 Anion Gap 11 L Estim Creat Clear Calc 164.0 Estimated GFR > 60 Random Glucose 106 Calcium 8.7 Total Bilirubin 1.1 H Direct Bilirubin 0.5 AST 23 ALT 51 H Alkaline Phosphatase 31 L B-Natriuretic Peptide 349 H Total Protein 6.1 L Albumin 3.4 L Assessment and Plan (1) Acute congestive heart failure: Status: Acute (2) Atrial fibrillation: Status: Acute (3) Bilateral edema of lower extremity: Status: Acute Plan ?51-year-old male with a past medical history of tobacco dependence, alcohol abuse presented to the hospital with a chief complaint of bilateral leg swelling.? ? Noted to have new onset AFib/new onset CHF.? New onset AFib: Patient heart rate slightly elevated; continue on metoprolol 12.5 mg b.i.d.,started on p.o. digoxin. Troponin x1 negative Cardiology evaluation noted-continue beta-elmer, digoxin, Xarelto New onset CHF possible? systolic: Patient reports orthopnea:? Noted to have 2+ pitting edema and mild JVD.? Echocardiogram-?? Low EF preliminary Daily weights and I's and O's continue Lasix 40 mg IV daily venous duplex-neg,mild elevated tsh, free T4 for is normal, T3 pending ?hemoglobin [id number], lipid profile noted -may need to add statin? after checking lft's in am ?cardiology eval noted:? Continue Lasix, and added Entresto. may need KAPIL cardioversion outpatient History of tobacco dependence: Counseled on smoking cessation History of alcohol abuse:? Last drink was 4 days ago.? Currently no signs of withdrawal. ?DVT prophylaxis: Lovenox . Need for inpatient: AFib, CHF exacerbation Quality Stroke Does the patient have a stroke diagnosis?: No VTE Prior VTE?: No VTE Risk Level:: Medical - moderate - high VTE Device Contraindication: Treatment Not Indicated VTE Drug Contraindication: N/A - Med Ordered
[2021-07-06 10:22] LABS: Triiodothyronine T3 Free 3.5 pg/mL (2.3-4.2)
--- NOTE | 2021-07-06 10:36 | P.CDIC_ITS ---
CDI Concurrent Query Documentation Clarification: PHYSICIAN'S DOCUMENTATION REQUEST Date of Query: 07/06/21 1037 Patient Name: Stef Cordova Admit Date: 07/04/21 Dear Doctor, A review of the medical record indicates additional documentation may be needed. Please review below and update the documentation accordingly. Risk Factors/Clinical Indicators/Treatments Body mass index: 36.5 6' 1 in height Smoker, alcohol abuse, new onset CHF. If possible, please provide an associated diagnosis related to the abnormal BMI, such as: For a BMI >= 30: * Overweight * Obesity * Due to excess calories * Drug induced * Due to other cause * Severe or Morbid Obesity * With alveolar hypoventilation * Without alveolar hypoventilation Or: * BMI is not significant * Other (please specify) * Unable to determine Use of terms such as suspected, likely, concern for, or probable (associated with a specific diagnosis that is being evaluated, monitored, or treated as if it exists) are acceptable and can be coded in the inpatient setting, when documented at the time of discharge. Thank you, Kisha Singh [facility], [facility]IS Extension: [phone] Please use your independent medical judgment in providing your response. THIS QUERY IS PART OF THE PERMANENT MEDICAL RECORD Provider Response: Other Other Diagnosis: Morbid obesity.
--- NOTE | 2021-07-06 10:36 | MHC.CDI.CONC ---
CDI Concurrent Query Documentation Clarification: PHYSICIAN'S DOCUMENTATION REQUEST Date of Query: 07/06/21 1037 Patient Name: Stef Cordova Admit Date: 07/04/21 Dear Doctor, A review of the medical record indicates additional documentation may be needed. Please review below and update the documentation accordingly. Risk Factors/Clinical Indicators/Treatments Body mass index: 36.5 6' 1 in height Smoker, alcohol abuse, new onset CHF. If possible, please provide an associated diagnosis related to the abnormal BMI, such as: For a BMI >= 30: Overweight Obesity Due to excess calories Drug induced Due to other cause Severe or Morbid Obesity With alveolar hypoventilation Without alveolar hypoventilation Or: BMI is not significant Other (please specify) Unable to determine Use of terms such as suspected, likely, concern for, or probable (associated with a specific diagnosis that is being evaluated, monitored, or treated as if it exists) are acceptable and can be coded in the inpatient setting, when documented at the time of discharge. Thank you, Kisha Singh [facility], [facility] Extension: [phone] Please use your independent medical judgment in providing your response. THIS QUERY IS PART OF THE PERMANENT MEDICAL RECORD Provider Response: Other Other Diagnosis: Morbid obesity.
--- NOTE | 2021-07-06 11:39 | MHC.CM.PN ---
PATIENT STILL REQUIRED IV LASIX ANTICIPATE 1-2 MORE DAYS AND THEN DC HOME - SELF CARE
[2021-07-06] MEDS: Rivaroxaban 20 MG TABLET PO (17:52)
[2021-07-07 03:36] VITALS: BP 113/62; PULSE 90; RESP 20; TEMP 36.8; O2SAT 95
[2021-07-07 08:00] VITALS: BP 110/71; PULSE 74; RESP 20; TEMP 36.9; O2SAT 95
[2021-07-07 08:58] LABS: Alanine Aminotransferase 53 U/L (0-40); Alkaline Phosphatase 36 U/L (39-117); Anion Gap 14 (12-20); Aspartate Amino Transferase 27 U/L (5-37); Bilirubin Direct 0.5 mg/dL (0.0-0.5); Bilirubin Total 1.4 mg/dL (0.0-1.0); Blood Urea Nitrogen 12 mg/dL (9-16); Calcium 9.3 mg/dL (8.4-10.2); Carbon Dioxide 21 mmol/L (22-29); Chloride 106 mmol/L (96-108); Creatinine Clr Calc Pharmacy 155.5; Estimated Glomerular Filt Rate > 60; Glucose Random 96 mg/dL (60-115); Potassium 4.2 mmol/L (3.3-5.1); Sodium 137 mmol/L (135-145); Total Protein 7.1 g/dL (6.5-8.0)
[2021-07-07] MEDS: HYDROmorphone HCl 1 MG/ML SYRINGE 0.5 MG IVPUSH (09:23)
[2021-07-07] MEDS: 0.9 % Sodium Chloride Flush 3 ML SYRINGE IVFLUSH (09:27)
[2021-07-07] MEDS: Metoprolol Tartrate 12.5 MG HALFTAB PO (09:36)
[2021-07-07] MEDS: Furosemide 20 MG/2 ML VIAL 40 MG IVPUSH (09:58)
--- NOTE | 2021-07-07 11:25 | P.PNCA_ITS ---
Subjective Subjective Date of Service: 07/07/21 Interval history: Feeling better. No orthopnea. Trace edema now and peripheral edema is also much better. Physical Exam Vital Signs: Last Vital Signs Temp 98.4 F 07/07/21 08:00 Pulse 74 07/07/21 08:00 Resp 20 07/07/21 08:00 BP 110/71 07/07/21 08:00 Pulse Ox 95 07/07/21 08:00 BMI result Body Mass Index 36.4 GENERAL APPEARANCE: in no acute distress, pleasant. NECK: no carotid bruit, no significant jugular venous distention. SKIN: no suspicious lesions, warm and dry. HEART: no murmurs, irregular rate and rhythm. LUNGS: clear to auscultation bilaterally. ABDOMEN: soft, nontender. EXTREMITIES: Trace edema. PERIPHERAL PULSES: equal. NEUROLOGIC: No gross deficits, AAO X 3 Objective Labs and Meds Result diagrams: 07/05/21 05:47 07/07/21 08:36 Lab results: Laboratory Results - last 24 hr 07/07/21 08:36 Sodium 137 Potassium 4.2 Chloride 106 Carbon Dioxide 21 L Anion Gap 14 BUN 12 Creatinine 0.78 Estim Creat Clear Calc 155.5 Estimated GFR > 60 Random Glucose 96 Calcium 9.3 D Total Bilirubin 1.4 H Direct Bilirubin 0.5 AST 27 ALT 53 H Alkaline Phosphatase 36 L Total Protein 7.1 Albumin 4.0 Progress Note: A&P Assessment and plan (1) Acute congestive heart failure: Status: Acute (2) Atrial fibrillation: Status: Acute Plan [age] year gentleman with new onset congestive heart failure and cardiomyopathy with severely reduced ejection fraction. He also has new diagnosis of atrial fibrillation. Clinically he appears euvolemic. Can be discharged home today. Should be discharged on 40 mg p.o. Lasix b.i.d., digoxin 125 mcg daily, Toprol- XL 25 mg daily, rivaroxaban 20 mg daily and Entresto. He will need a note for time-out from work. We will plan a KAPIL cardioversion on him in the next few weeks. Thank you for allowing me to participate in the care of your patient. Please feel free to contact me if you have any questions. Time Spent With Patient Time: Total time spent is greater than 50% in coordination of care (as documented) at patient's floor/unit and/or counseling patient: Progress Note: Quality Stroke Does the patient have a stroke diagnosis?: No Procedures Date of Service Date of Service: 07/07/21
[2021-07-07] MEDS: Sacubitril/Valsartan 24/26 1 TAB TABLET PO (11:45)
[2021-07-07] MEDS: Digoxin 0.125 MG TABLET PO (11:46)
[2021-07-07 12:00] VITALS: BP 116/62; PULSE 85; RESP 15; TEMP 36.3
--- NOTE | 2021-07-07 12:31 | PC.NURSE ---
pt very upset earlier this morning, he is wanting a shower. I did call and speak to Krista PA[employer]ological [employer] who will try and get him a bed sooner than later but no bed assignment yet. Cardiology did say that he could shower once in a regular room. pt is wanting to leave after 6pm family birthday alliance party and come back later , this RN did explain that his heart condition is serious and should not leave, he will reconsider
--- NOTE | 2021-07-07 13:52 | P.DS_ITS ---
DS: Providers Provider Date of Service: 07/07/21 Date of admission: 07/04/21 20:18 Primary care physician: None Physician Consults: 07/04/21 20:18 Consult to Cardiology Routine Consulting Provider: Celio Ndiaye Reason for consultation: new CHF/AFib DS: Diagnosis Discharge Diagnosis (1) Acute congestive heart failure: Status: Acute (2) Atrial fibrillation: Status: Acute DS: Summary Hospital Course Hospital Course: Chief Complaint: SOB ? 51-year-old male with a past medical history of tobacco dependence, alcohol abuse presented to the hospital with a chief complaint of bilateral leg swelling.? Patient reports that over the past 2 weeks he has been having bilateral leg swelling assist with mild pain; denies any falls or trauma.? Patient reports that he is also noticing shortness of breath especially when lying flat; has to get a couple times to take ? Breath.? Denies any cough or sputum production.? Denies any travel or sick contacts Denies any tick bites Mentions that he drinks alcohol about 3-4 shots of vodka every day last drink was about 4 days ago Denies any concerns for withdrawal.? Also reports he smokes cigarettes.? Denies any numbness tingling or focal weakness.? Review of all other systems is negative except mentioned above ER course: Per ER team patient noted to have 2+ pitting edema; also on EKG noted to have AFib with mild RVR; ? Discussed with Cardiology, recommended admission for further evaluation. Hospital course: Patient presented with shortness of breath, elevated BNP and althogh CXR was unremarkable, his clinical presentation was most consitent with acute heart failure and was also found to be in AFIB with RVR. Echocadiogram later showed EF of 25. AFIB has been controlled with Metoprolol and Dig and ant icoagulation with Xarelto. Heart failure was managed with IV Lasix now transitioned to oral 40 mg twice aday, metoprolol and Entresto..He was followed by Dr. Ndiaye who will follow him in the office and arrange for cardioversion at later time. To avoid salt, weight himself dialy Time Spent with Patient Time attestation: Total time spent providing and/or coordinating discharge services: Discharge coordination time: Greater than 30 minutes Quality: Safe Use of Opioids Does Pt have an Active Cancer Diagnosis on the Problem List?: No Quality: Stroke Does the patient have a stroke diagnosis?: No Physical Exam Vital Signs: Vital Signs: Last Vital Signs Temp 97.3 F 07/07/21 12:00 Pulse 85 07/07/21 12:00 Resp 15 07/07/21 12:00 BP 116/62 07/07/21 12:00 Pulse Ox 95 07/07/21 08:00 BMI result Body Mass Index 36.4 Const: Other: General: AO X 3, no acute distress Resp: CTA bilateral CVS: S1,S2, iregular iregular..1+ leg edama GI: +BS, NT, no distention Skin: No rash Neuro: motor grossly intact Psych: appropriate affect DS: Data Data Completed and Pending Labs on day of discharge: Laboratory Results - last 24 hr 07/07/21 08:36 Sodium 137 Potassium 4.2 Chloride 106 Carbon Dioxide 21 L Anion Gap 14 BUN 12 Creatinine 0.78 Estim Creat Clear Calc 155.5 Estimated GFR > 60 Random Glucose 96 Calcium 9.3 D Total Bilirubin 1.4 H Direct Bilirubin 0.5 AST 27 ALT 53 H Alkaline Phosphatase 36 L Total Protein 7.1 Albumin 4.0 Discharge Plan Discharge Anticipated Discharge Date/Time: 07/07/21 13:42 Patient Disposition: Home, Self-Care Discharge Diagnosis: New afib with RVR and Heart failure Referrals: Physician,None [Primary Care Provider] - 1 Week Discharge Medications: New digoxin 125 mcg (0.125 mg) Tablet 0.125 mg PO DAILY Qty: 30 0RF Xarelto 20 mg Tablet 20 mg PO DAILY@1700 Qty: 30 0RF Entresto 24-26 mg Tablet 1 tab PO BID Qty: 60 0RF Protocol: Hold for SBP< HOLD for SBP < : 90 metoprolol succinate [Toprol XL] 25 mg tablet extended release 24 hr 25 mg PO DAILY Qty: 30 0RF furosemide [Lasix] 40 mg tablet 40 mg PO BID Qty: 60 0RF Continued diphenhydramine HCl [Benadryl] 25 mg Capsule 25 mg PO BEDTIME PRN (Reason: Insomnia) 0RF melatonin 5 mg Tablet 35 mg PO BEDTIME PRN (Reason: Insomnia) 0RF Discharge Orders: Discharge Order (Routine); Ordered 07/07/21 Ordered By: Reji Co[facility] Diet: advance to usual diet and low salt diet Activity on Discharge: As tolerated Stand Alone Forms: Patient Portal Discharge page Care Plan Goals: Control heart failure, and AFIB Health Concerns: Afib, heart failure Plan of Treatment: Take all medication as prescribed and follow up with Dr. Ndiaye to have cardioversion (heart shock) at alter time, take xarelto to thin your blood and prevent stroke.. avoid alcohol Limit salt intake, weight yourself daily and if your daily weight goes up by 2 ib a day call your doctor. Make an appointment to go see your Doctor in a week Assessment: As above
== END 2021-07-07 20:12 | disposition home or self-care (01) | DRG 194 ==
LOC: HO.ED 20:14 → HO.EDOVER 20:43
PROVIDERS: Internal Medicine; Admitting Provider Hospitalist; Emergency Provider Student in an Organized Health Care Education/Training Program; Visit Provider Internal Medicine
DX: I50.21 Acute systolic (congestive) heart failure (principal); E66.01 Morbid (severe) obesity due to excess calories; I48.91 Unspecified atrial fibrillation; F10.10 Alcohol abuse, uncomplicated; Z20.822 Contact with and (suspected) exposure to COVID-19; Z68.36 Body mass index [BMI] 36.0-36.9, adult; Z79.899 Other long term (current) drug therapy
CPT/HCPCS: 36415; 71045; 80048; 80061; 80076; 83036; 83880; 84439; 84443; 84481; 84484; 85025; 87635; 93005; 93306; 93970; 96361; 96374; 99285; J1160; J1170; J1650; J1940; Q9957

== ENCOUNTER 2021-07-27 12:19 | Day surgery (SDC) | payer OTHER, SELFPAY ==
--- NOTE | 2021-07-26 09:12 | HO.ANESPROP2 ---
Documented by User: Delmy Garcia NP 07/26/21 09:18 HPI - Anesthesia Eval Consult details Narrative: 51yo M for Transesophageal Echocardiogram and cardioversion ETOH abuse Xarelto for afib PMFSH Active Problems Active Problems: All Active Problems (Updated 07/20/21 @ 13:01 by Jennifer Jones RN) Atrial fibrillation (Acute) Past Medical History Medical History Atrial fibrillation CHF (congestive heart failure) Surgical History Surgical History Hx of lumbar discectomy Surgical history unknown Social History Social History Patient Tobacco Use Status: Current everyday Tobacco user Tobacco use type: Cigarette Cigarettes Per Day: 10.0 Use of substances other than those prescribed or required for medical reasons: Yes Are you DNR?: No Advance Directives: No Advance Directives Information Provided: Yes Advance Directives on File: No service: No Current occupational status: unemployed Meds Allergies Allergy/AdvReac Type Severity Reaction Status Date / Time No Known Allergies Allergy Verified 07/04/21 17:41 Home Medications Medication Instructions Recorded Confirmed Last Taken Type diphenhydramine HCl 25 mg capsule 25 mg PO BEDTIME PRN Insomnia 07/04/21 07/04/21 07/26/21 History (Benadryl) melatonin 5 mg tablet 35 mg PO BEDTIME PRN Insomnia 07/04/21 07/04/21 07/26/21 History Exam Exam Date and Time: July 26, 2021 0912 Pertinent Lab Results Pertinent Lab Results: Laboratory Tests 07/05/21 07/07/21 05:47 08:36 WBC 8.4 Hgb 15.0 Hct 44.3 Plt Count 190 Sodium 137 Potassium 4.2 Chloride 106 Carbon Dioxide 21 L BUN 12 Creatinine 0.78 Narrative Narrative: EKG 06/2021 Vent. Rate : 113 BPM ? ? Atrial Rate : 000 BPM ?? P-R Int : 000 ms? QRS Dur : 094 ms ? ? QT Int : 364 ms ? ? ? P-R-T Axes : 000 176 039 degrees ?? QTc Int : 499 ms ? Atrial fibrillation with rapid ventricular response Right axis deviation Abnormal ECG No previous ECGs available ECHO 06/2021 Conclusions: - There is normal left ventricular wall thickness.? The left ? ? ventricular systolic function is severely decreased.? The? visually estimated ejection fraction is between 20-25%.? - left ventricle is dilated. ? - Mildly increased right ventricular cavity size.? There is? ? ? mildly decreased right ventricular systolic function.? - The left atrium is severely dilated.? The right atrium is? ? ? moderately dilated.?? Assessment and Plan Assessment Anesthesia Assessment: Chart Reviewed Documented by User: Aisha Machado MD 07/27/21 13:54 PMFSH Past Medical History Medical History Atrial fibrillation CHF (congestive heart failure) Surgical History Surgical History Hx of lumbar discectomy Surgical history unknown History of Problems with Anesthesia: No Social History Social History Patient Tobacco Use Status: Current everyday Tobacco user Tobacco use type: Cigarette Cigarettes Per Day: 10.0 Use of substances other than those prescribed or required for medical reasons: Yes Are you DNR?: No Advance Directives: No Advance Directives Information Provided: Yes Advance Directives on File: No service: No Current occupational status: unemployed Meds Allergies Allergy/AdvReac Type Severity Reaction Status Date / Time No Known Allergies Allergy Verified 07/04/21 17:41 Home Medications Medication Instructions Recorded Confirmed Last Taken Type diphenhydramine HCl 25 mg capsule 25 mg PO BEDTIME PRN Insomnia 07/04/21 07/04/21 07/26/21 History (Benadryl) melatonin 5 mg tablet 35 mg PO BEDTIME PRN Insomnia 07/04/21 07/04/21 07/26/21 History Exam Airway Mallampati Class: II (Globally poor dentition) TM Dist: >3cm Neck ROM: Full Loose/Missing/Broken Teeth: Yes (Very loose upper central incisor, pt aware tooth may come out during procedure and is ok with that) Heart: RRR Lungs: CTA Assessment and Plan Assessment Anesthesia Assessment: Anesthesia Plan Discussed and Chart Reviewed Final Anesthetic Review History of Problems with Anesthesia: No NPO: Yes ASA Class: III Final Preanesthetic Review: Meds/Allgs Chart Reviewed, Consent Obtained/Reviewed and Anes Risks/Benef Reviewed Patient Risk: Intermediate Procedure Risk: Intermediate Anesthetic Plan Anesthetic Plan: MAC: Disposition: Standard PACU
[2021-07-27 12:28] VITALS: BMI 33.2
[2021-07-27 12:45] VITALS: BP 115/70; PULSE 74; RESP 16; TEMP 36.4; O2SAT 98
--- NOTE | 2021-07-27 14:00 | CA_ITS ---
Transesophageal Echocardiogram Patient (Last, First, Middle): Stef Cordova A Gender: Male Date of : 1970 Age: 51 Procedure Date: 07/27/2021 Procedure Type: Transesophageal Echocardiogram Location: OP Height: 185.42 cm Weight: 110.99 kg BSA: 2.34 m2 Heart Rate: bpm Computer Systems Hardware Analyst: JENISE Referring MD: Celio Ndiaye MD Hospitality Manager: Celio Ndiaye MD Symptoms: Afib Conclusion: ??? Small thrombus in the JAVIER noted. ??? We decided not to cardiovert due to left atrial appendage clot. Findings Left Ventricle Normal left ventricular cavity size. The left ventricular systolic function is mildly decreased. The visually estimated ejection fraction is between 40 45%. Right Ventricle Normal right ventricular cavity size. Atria Small thrombus in the JAVIER noted. Aortic Valve There is a bicuspid aortic valve. The raphe is between the right coronary cusp and left coronary cusp. There is no aortic valve stenosis. There is trace (trivial) aortic valve regurgitation. Mitral Valve The mitral valve appears normal. There is trace mitral valve regurgitation. There is no mitral valve stenosis. Pulmonic Valve The pulmonic valve was not well visualized. Tricuspid Valve Normal tricuspid valve structure and function. Great Vessels Moderate plaque is seen in the descending thoracic aorta. Pericardium/Pleural There is no evidence of pericardial effusion. Prior Study Comparison No prior study available for comparison. Updated by Celio Ndiaye on 12:28 AM with Status of Final Celio Ndiaye MD electronically signed on 07/29/2021 12:28:32 AM with status of Final
--- NOTE | 2021-07-27 14:10 | MHC.SHP ---
Pre-Procedural Eval Section A Date of Service: 07/27/21 The patient is an INPATIENT: No Section B Chief Complaint: a-fib Details of Present Illness: Cardiomyopathy. Here for KAPIL/cardioversion Allergies: Allergies Allergy/AdvReac Type Severity Reaction Status Date / Time No Known Allergies Allergy Verified 07/04/21 17:41 Plan Diagnosis/Plan: Unchanged I have reviewed the history and physical and performed a pertinent physical examination on my patient. No changes have occurred unless specified.
[2021-07-27 14:52] VITALS: BP 91/46; PULSE 74; RESP 16; TEMP 36.1; O2SAT 100
[2021-07-27 14:57] VITALS: BP 96/53; PULSE 68; RESP 17; O2SAT 97
[2021-07-27 15:08] VITALS: BP 115/49; PULSE 71; RESP 18; TEMP 36.1; O2SAT 96
== END 2021-07-27 15:22 | disposition home or self-care (01) ==
PROVIDERS: Visit Provider Internal Medicine Cardiovascular Disease
PROC: (CPT 93312; principal; 2021-07-27 14:00)
DX: I48.91 Unspecified atrial fibrillation (principal); I51.3 Intracardiac thrombosis, not elsewhere classified; I50.9 Heart failure, unspecified; F17.210 Nicotine dependence, cigarettes, uncomplicated; Z79.899 Other long term (current) drug therapy
CPT/HCPCS: 93312; J2250; J2370

== ENCOUNTER 2021-08-15 15:54 | Outpatient (REF) | payer OTHER, SELFPAY ==
[2021-08-15 17:07] LABS: B Type Natriuretic Peptide 164 pg/mL (<100)
[2021-08-15 17:37] LABS: Alanine Aminotransferase 31 U/L (0-40); Albumin Level 4.2 g/dL (3.5-5.0); Alkaline Phosphatase 30 U/L (39-117); Anion Gap 14 (12-20); Aspartate Amino Transferase 22 U/L (5-37); Bilirubin Total 0.7 mg/dL (0.0-1.0); Blood Urea Nitrogen 9 mg/dL (9-16); Calcium 9.2 mg/dL (8.4-10.2); Carbon Dioxide 28 mmol/L (22-29); Chloride 101 mmol/L (96-108); Estimated Glomerular Filt Rate > 60; Glucose Random 87 mg/dL (60-115); Potassium 4.1 mmol/L (3.3-5.1); Sodium 139 mmol/L (135-145); Total Protein 7.1 g/dL (6.5-8.0)
[2021-08-15 18:03] LABS: Digoxin < 0.3 ng/mL (0.8-2.0)
== END 2021-08-15 15:55 | disposition home or self-care (01) ==
LOC: HO.LAB 15:54
PROVIDERS: Visit Provider Nurse Practitioner Family
DX: I48.91 Unspecified atrial fibrillation (principal); I50.9 Heart failure, unspecified; I42.9 Cardiomyopathy, unspecified; Z79.899 Other long term (current) drug therapy
CPT/HCPCS: 36415; 80053; 80162; 83880; 99212

== ENCOUNTER 2021-09-27 08:48 | Day surgery (SDC) | payer OTHER, SELFPAY ==
[2021-09-21 09:09] VITALS: BMI 35.8
--- NOTE | 2021-09-26 08:50 | HO.ANESPROP2 ---
Documented by User: Delmy Garcia NP 09/26/21 08:55 HPI - Anesthesia Eval Consult details Narrative: 51yo M for Transesophageal Echocardiogram, Cardioversion C admit with CHF, new onset afib. Heavy ETOH - no longer drinking per cardiac note Xarelto for afib PMFSH Active Problems Active Problems: All Active Problems (Updated 09/21/21 @ 09:07 by Myranda Huber RN) Atrial fibrillation (Acute) Cardiomyopathy (Acute) CHF (congestive heart failure) (Acute) Past Medical History Medical History Atrial fibrillation CHF (congestive heart failure) Chronic back pain On beta elmer at home S/P transesophageal echocardiogram (KAPIL) Surgical History Surgical History (Updated 09/21/21 @ 09:07 by Myranda Huber RN) Hx of lumbar discectomy History of Problems with Anesthesia: No Social History Social History Patient Tobacco Use Status: Current everyday Tobacco user Tobacco use type: Cigarette Cigarettes Per Day: 10 Have you been hit, kicked, punched, or otherwise hurt by someone within the past year? If so, by whom?: No Are you DNR?: No Advance Directives: No Advance Directives Information Provided: Yes Advance Directives on File: No Recently lost weight without trying: No Eating poorly because of decreased appetite: No Nutrition Risks: No Nutritional Risk service: No Current occupational status: unemployed Meds Allergies Allergy/AdvReac Type Severity Reaction Status Date / Time No Known Allergies Allergy Verified 09/21/21 09:08 Home Medications Medication Instructions Recorded Confirmed Last Taken Type diphenhydramine HCl 25 mg capsule 25 mg PO BEDTIME PRN Insomnia 07/04/21 09/21/21 07/26/21 History (Benadryl) melatonin 5 mg tablet 35 mg PO BEDTIME PRN Insomnia 07/04/21 09/21/21 07/26/21 History Exam Exam Date and Time: September 26, 2021 0850 Height,Weight and Vital Signs: Height 6 ft Weight 119.748 kg Pertinent Lab Results Pertinent Lab Results: Laboratory Tests 07/05/21 08/15/21 05:47 16:06 WBC 8.4 Hgb 15.0 Hct 44.3 Plt Count 190 Sodium 139 Potassium 4.1 Chloride 101 Carbon Dioxide 28 BUN 9 Creatinine 0.88 Narrative Narrative: KAPIL 07/2021 Conclusion: ??? Small thrombus in the JAVIER noted. ? We decided not to cardiovert due to left atrial appendage clot. Findings Left Ventricle Normal left ventricular cavity size.? The left ventricular systolic function is mildly decreased.? The visually estimated ejection fraction is between 40 45%. EKG 07/2021 Vent. Rate : 113 BPM ? ? Atrial Rate : 000 BPM ?? P-R Int : 000 ms? QRS Dur : 094 ms ? ? QT Int : 364 ms ? ? ? P-R-T Axes : 000 176 039 degrees ?? QTc Int : 499 ms ? Atrial fibrillation with rapid ventricular response Right axis deviation Abnormal ECG No previous ECGs available Assessment and Plan Assessment Anesthesia Assessment: Chart Reviewed Final Anesthetic Review History of Problems with Anesthesia: No Documented by User: Elton Dunne MD 09/27/21 09:51 [facility] Past Medical History Medical History Atrial fibrillation CHF (congestive heart failure) Chronic back pain On beta elmer at home S/P transesophageal echocardiogram (KAPIL) Family History Family history of problems with anesthesia: No Surgical History Surgical History (Updated 09/21/21 @ 09:07 by Myranda Huber RN) Hx of lumbar discectomy Social History Social History Patient Tobacco Use Status: Current everyday Tobacco user Tobacco use type: Cigarette Cigarettes Per Day: 10 Have you been hit, kicked, punched, or otherwise hurt by someone within the past year? If so, by whom?: No Are you DNR?: No Advance Directives: No Advance Directives Information Provided: Yes Advance Directives on File: No Recently lost weight without trying: No Eating poorly because of decreased appetite: No Nutrition Risks: No Nutritional Risk service: No Current occupational status: unemployed Meds Allergies Allergy/AdvReac Type Severity Reaction Status Date / Time No Known Allergies Allergy Verified 09/21/21 09:08 Home Medications Medication Instructions Recorded Confirmed Last Taken Type diphenhydramine HCl 25 mg capsule 25 mg PO BEDTIME PRN Insomnia 07/04/21 09/21/21 07/26/21 History (Benadryl) melatonin 5 mg tablet 35 mg PO BEDTIME PRN Insomnia 07/04/21 09/21/21 07/26/21 History Exam Airway Mallampati Class: III TM Dist: >3cm Neck ROM: Full Loose/Missing/Broken Teeth: Yes and Lower Heart: irrr Lungs: clear Assessment and Plan Final Anesthetic Review Family History of Problems with Anesthesia: No NPO: Yes ASA Class: IV Final Preanesthetic Review: No Changes in Pt Med Stat, Meds/Allgs Chart Reviewed, Consent Obtained/Reviewed and Anes Risks/Benef Reviewed Patient Risk: High Procedure Risk: Low Anesthetic Plan Anesthetic Plan: MAC: Disposition: Standard PACU
--- NOTE | 2021-09-27 | ECG_ITS ---
Test Reason : cardioversion Blood Pressure : / mmHG Vent. Rate : 080 BPM Atrial Rate : 000 BPM P-R Int : 000 ms QRS Dur : 104 ms QT Int : 384 ms P-R-T Axes : 000 -25 000 degrees QTc Int : 442 ms Atrial fibrillation Nonspecific T wave abnormality Abnormal ECG When compared with ECG of 04-JUL-2021 17:44, Questionable change in QRS axis Nonspecific T wave abnormality now evident in Lateral leads Referred By: Celio Ndiaye Electronically Signed By:GLEN NARAYANAN
[2021-09-27 09:00] VITALS: BP 116/65; PULSE 67; RESP 18; TEMP 36.2; O2SAT 98
[2021-09-27] MEDS: 0.9 % Sodium Chloride 1,000 ML 50 ML IVCONT (09:25)
--- NOTE | 2021-09-27 09:30 | MHC.SHP ---
Pre-Procedural Eval Section A Date of Service: 09/27/21 The patient is an INPATIENT: No Section B Chief Complaint: Unspecified atrial fibrillation Allergies: Allergies Allergy/AdvReac Type Severity Reaction Status Date / Time No Known Allergies Allergy Verified 09/21/21 09:08 Plan Diagnosis/Plan: Unchanged I have reviewed the history and physical and performed a pertinent physical examination on my patient. No changes have occurred unless specified.
--- NOTE | 2021-09-27 10:00 | CA_ITS ---
Transesophageal Echocardiogram Patient (Last, First, Middle): Stef Cordova A Gender: Male Date of : 1970 Age: 51 Procedure Date: 09/27/2021 Procedure Type: Transesophageal Echocardiogram Location: OP Height: 185. cm Weight: 111. kg BSA: 2.34 m2 Heart Rate: 88 bpm BP: 116 / 67 mmHg Transit Proof Machine Operator: JENISE Referring MD: Celio Ndiaye MD Manager Operations: Celio Ndiaye MD Symptoms: Afib Conclusion: ??? Normal left ventricular cavity size. The left ventricular systolic function is mildly decreased. The visually estimated ejection fraction is between 40-45%. ??? Normal right ventricular cavity size and systolic function. ??? There is no evidence of a thrombus in the left atrial appendage. Findings Procedure Information Consent was obtained prior to the procedure. The adult 3D probe was passed with no difficulty. This was a technically good study. Left Ventricle Normal left ventricular cavity size. The left ventricular systolic function is mildly decreased. The visually estimated ejection fraction is between 40 45%. Right Ventricle Normal right ventricular cavity size and systolic function. Atria There is no evidence of a thrombus in the left atrial appendage. Aortic Valve There is a bicuspid aortic valve. There is mild aortic valve regurgitation. Mitral Valve Normal mitral valve structure and function. There is trace mitral valve regurgitation. There is no mitral valve stenosis. Pulmonic Valve The pulmonic valve was not well visualized. Tricuspid Valve Normal tricuspid valve structure and function. There is trace tricuspid valve regurgitation. Pericardium/Pleural There is no evidence of pericardial effusion. Prior Study Comparison Changes noted compared to prior study dated: 07/27/2021. No JAVIER clot. We proceeded with cardioversion. Updated by Celio Ndiaye on 03:47 PM with Status of Final Celio Ndiaye MD electronically signed on 09/30/2021 3:47:29 PM with status of Final
[2021-09-27 10:26] VITALS: BP 121/60; PULSE 69; RESP 20; TEMP 36.4; O2SAT 96
--- NOTE | 2021-09-27 10:29 | HO.CARDIVERS ---
Cardioversion Procedure Note Cardioversion Date of Procedure: 09/27/21 Ordering Provider: Celio Ndiaye Performing Provider: Celio Ndiaye Indication for Procedure: Afib Performed with Transesophageal Echo: Yes KAPIL findings (if KAPIL Performed): no LA or JAVIER clot Consent: Verbal and Written consent was obtained from the patient before starting. The patient was made aware of the risk of stroke. Procedure: After consent obtained, defib pads were attached and the patient was sedated by the anesthesia team. Once adequate sedation achieved, single synchronized shock of 200 joules was given which converted the patient to sinus rhythm. Patient was left with Anesthesia for recovery. In PACU unfortunately patient went back into atrial fibrillation. Complications: None Recommendations: Stop the Digoxin. Adding amiodarone 400 mg twice a day for 10 days and then 200 mg once a day. This will be a short term drug for the patient. Once his loaded will bring him back and do repeat cardioversion in few weeks. Once he has sinus rhythm I will repeat his echocardiogram in few months. We will refer him for AFib ablation and stop the amiodarone after that.
[2021-09-27 10:31] VITALS: BP 111/68; PULSE 60; RESP 20; O2SAT 96
[2021-09-27 10:36] VITALS: BP 109/69; PULSE 78; RESP 19; O2SAT 98
[2021-09-27 10:41] VITALS: BP 117/74; PULSE 79; RESP 18; O2SAT 98
[2021-09-27 10:56] VITALS: BP 119/72; PULSE 68; RESP 18; TEMP 36.2; O2SAT 96
== END 2021-09-27 11:42 | disposition home or self-care (01) ==
PROVIDERS: Visit Provider Internal Medicine Cardiovascular Disease
PROC: (CPT 93312; principal; 2021-09-27 10:00)
PROC: 5A2204Z Restoration of Cardiac Rhythm, Single (ICD-10-PCS; CPT 93312; 2021-09-27 10:00)
DX: I48.91 Unspecified atrial fibrillation (principal); I50.9 Heart failure, unspecified; I42.9 Cardiomyopathy, unspecified; I35.1 Nonrheumatic aortic (valve) insufficiency; R60.0 Localized edema; Z79.01 Long term (current) use of anticoagulants; Z79.899 Other long term (current) drug therapy; Z72.89 Other problems related to lifestyle; F17.210 Nicotine dependence, cigarettes, uncomplicated
CPT/HCPCS: 93312; 92960; 93005; J2250; Q9957

== ENCOUNTER 2021-11-05 12:22 | Day surgery (SDC) | payer OTHER, SELFPAY ==
[2021-10-31 11:34] VITALS: BMI 35.8
--- NOTE | 2021-11-02 08:40 | HO.ANESPROP2 ---
Documented by User: Delmy Garcia NP 11/02/21 08:43 HPI - Anesthesia Eval Consult details Narrative: 51yo M for Transesophageal Echocardiogram, Cardioversion Xarelto for afib s/p cardioversion 09/2021 [facility] Active Problems Active Problems: All Active Problems (Updated 09/21/21 @ 09:07 by Myranda Huber RN) Atrial fibrillation (Acute) Cardiomyopathy (Acute) CHF (congestive heart failure) (Acute) Past Medical History Medical History Atrial fibrillation CHF (congestive heart failure) Chronic back pain On beta elmer at home S/P transesophageal echocardiogram (KAPIL) Family History Family history of problems with anesthesia: No Surgical History Surgical History (Updated 09/21/21 @ 09:07 by Myranda Huber RN) Hx of lumbar discectomy History of Problems with Anesthesia: No Social History Social History Patient Tobacco Use Status: Former Tobacco user Tobacco use type: Cigarette Cigarettes Per Day: 20 Years Smoked: 40 Smoked in Last 30 Days: Yes Use of substances other than those prescribed or required for medical reasons: Yes Substance Use Frequency: Daily Are you DNR?: No Advance Directives: No Advance Directives Information Provided: Yes service: No Current occupational status: unemployed Meds Allergies Allergy/AdvReac Type Severity Reaction Status Date / Time No Known Allergies Allergy Verified 11/05/21 12:33 Home Medications Medication Instructions Recorded Confirmed Last Taken Type diphenhydramine HCl 25 mg capsule 25 mg PO BEDTIME PRN Insomnia 07/04/21 09/21/21 07/26/21 History (Benadryl) melatonin 5 mg tablet 35 mg PO BEDTIME PRN Insomnia 07/04/21 09/21/21 07/26/21 History Exam Exam Date and Time: November 02, 2021 0840 Height,Weight and Vital Signs: Height 6 ft Weight 119.748 kg Pertinent Lab Results Pertinent Lab Results: Laboratory Tests 07/05/21 08/15/21 05:47 16:06 WBC 8.4 Hgb 15.0 Hct 44.3 Plt Count 190 Sodium 139 Potassium 4.1 Chloride 101 Carbon Dioxide 28 BUN 9 Creatinine 0.88 Narrative Narrative: KAPIL 07/2021 Conclusion: ??? Small thrombus in the JAVIER noted. ? We decided not to cardiovert due to left atrial appendage clot. Findings Left Ventricle Normal left ventricular cavity size.? The left ventricular systolic function is mildly decreased.? The visually estimated ejection fraction is between 40 45%. EKG 07/2021 Vent. Rate : 113 BPM ? ? Atrial Rate : 000 BPM ?? P-R Int : 000 ms? QRS Dur : 094 ms ? ? QT Int : 364 ms ? ? ? P-R-T Axes : 000 176 039 degrees ?? QTc Int : 499 ms ? Atrial fibrillation with rapid ventricular response Right axis deviation Abnormal ECG No previous ECGs available Assessment and Plan Assessment Anesthesia Assessment: Chart Reviewed Final Anesthetic Review Family History of Problems with Anesthesia: No History of Problems with Anesthesia: No Documented by User: Dwayne Macdonald MD 11/05/21 12:47 [facility] Past Medical History Medical History Atrial fibrillation CHF (congestive heart failure) Chronic back pain On beta elmer at home S/P transesophageal echocardiogram (KAPIL) Surgical History Surgical History (Updated 09/21/21 @ 09:07 by Myranda Huber RN) Hx of lumbar discectomy Social History Social History Patient Tobacco Use Status: Former Tobacco user Tobacco use type: Cigarette Cigarettes Per Day: 20 Years Smoked: 40 Smoked in Last 30 Days: Yes Use of substances other than those prescribed or required for medical reasons: Yes Substance Use Frequency: Daily Are you DNR?: No Advance Directives: No Advance Directives Information Provided: Yes service: No Current occupational status: unemployed Meds Allergies Allergy/AdvReac Type Severity Reaction Status Date / Time No Known Allergies Allergy Verified 11/05/21 12:33 Home Medications Medication Instructions Recorded Confirmed Last Taken Type diphenhydramine HCl 25 mg capsule 25 mg PO BEDTIME PRN Insomnia 07/04/21 09/21/21 07/26/21 History (Benadryl) melatonin 5 mg tablet 35 mg PO BEDTIME PRN Insomnia 07/04/21 09/21/21 07/26/21 History Assessment and Plan Assessment Anesthesia Assessment: Anesthesia Plan Discussed and Smoking Cess. Discussed Final Anesthetic Review NPO: Yes ASA Class: III Final Preanesthetic Review: Meds/Allgs Chart Reviewed, Consent Obtained/Reviewed and Anes Risks/Benef Reviewed Patient Risk: Intermediate Procedure Risk: Low Anesthetic Plan Anesthetic Plan: GA Disposition: Standard PACU
--- NOTE | 2021-11-05 | ECG_ITS ---
Test Reason : post op Blood Pressure : / mmHG Vent. Rate : 059 BPM Atrial Rate : 059 BPM P-R Int : 236 ms QRS Dur : 104 ms QT Int : 496 ms P-R-T Axes : 065 -45 046 degrees QTc Int : 491 ms Sinus bradycardia with 1st degree A-V block Left axis deviation Prolonged QT Abnormal ECG When compared with ECG of 27-SEP-2021 10:28, Sinus rhythm has replaced Atrial fibrillation Referred By: Celio Ndiaye Electronically Signed By:GLEN NARAYANAN
[2021-11-05 12:35] VITALS: BP 133/99; PULSE 76; RESP 16; TEMP 36; O2SAT 96; BMI 33.9
[2021-11-05] MEDS: Lactated Ringers 1,000 ML 50 ML IVCONT (12:45)
--- NOTE | 2021-11-05 13:05 | MHC.SHP ---
Pre-Procedural Eval Section A Date of Service: 11/05/21 The patient is an INPATIENT: No Section B Chief Complaint: a-fib Details of Present Illness: Here for cardioversion. Allergies: Allergies Allergy/AdvReac Type Severity Reaction Status Date / Time No Known Allergies Allergy Verified 11/05/21 12:33 Plan Diagnosis/Plan: Unchanged I have reviewed the history and physical and performed a pertinent physical examination on my patient. No changes have occurred unless specified.
--- NOTE | 2021-11-05 13:23 | HO.CARDIVERS ---
Cardioversion Procedure Note Cardioversion Date of Procedure: 11/05/21 Ordering Provider: Gaye Galo NP Performing Provider: Celio Ndiaye MD Indication for Procedure: Afib, cardiomyopathy Pre-Op Diagnosis: Atrial fibrillation Performed with Transesophageal Echo: No Consent: Verbal and Written consent was obtained from the patient before starting. The patient was made aware of the risk of stroke, failure to achieve sinus rhythm and aspiration. Procedure: After consent obtained, defib pads were attached and the patient was sedated by the anesthesia team. Once adequate sedation achieved, patient was given single synchronized shock of 200 joules which converted him to sinus rhythm. He was left with Anesthesia for recovery. Complications: None Recommendations: Continue amiodarone 200 mg daily. Continue Xarelto without interruption. We will refer the patient for atrial fibrillation ablation. After ablation amiodarone will be discontinued.
[2021-11-05 13:30] VITALS: BP 101/65; PULSE 58; RESP 15; TEMP 36.1; O2SAT 98
[2021-11-05 13:35] VITALS: BP 89/54; PULSE 57; RESP 16; O2SAT 96
[2021-11-05 13:40] VITALS: BP 93/62; PULSE 57; RESP 16; O2SAT 96
[2021-11-05 13:45] VITALS: BP 93/62; PULSE 58; RESP 16; TEMP 36.1; O2SAT 96
== END 2021-11-05 14:41 | disposition home or self-care (01) ==
PROVIDERS: Visit Provider Internal Medicine Cardiovascular Disease
PROC: 5A2204Z Restoration of Cardiac Rhythm, Single (ICD-10-PCS; principal; 2021-11-05 13:00)
DX: I48.91 Unspecified atrial fibrillation (principal); I42.9 Cardiomyopathy, unspecified; Z79.01 Long term (current) use of anticoagulants; Z87.891 Personal history of nicotine dependence
CPT/HCPCS: 92960; 93005; J2250

== ENCOUNTER → 2021-11-28 13:16 | Outpatient (BNVA) | payer OTHER, SELFPAY | PROVIDERS: Visit Provider Nurse Practitioner Family | DX: I48.91 Unspecified atrial fibrillation (principal); I50.9 Heart failure, unspecified; I42.9 Cardiomyopathy, unspecified | CPT/HCPCS: 93005; 99212 ==

== ENCOUNTER → 2021-12-17 10:09 | Outpatient (REF) | payer OTHER, SELFPAY ==
--- NOTE | 2021-12-17 10:12 | CA_ITS ---
Transthoracic Echocardiogram Patient (Last, First, Middle): Stef Cordova A Gender: Male Date of : 1970 Age: 51 Procedure Date: 12/17/2021 Procedure Type: Transthoracic Echocardiogram Location: OP Height: 182.88 cm Weight: 120.2 kg BSA: 2.40 m2 Heart Rate: bpm BP: 122 / 86 mmHg Graphic Arts Instructor: LENORA Referring MD: Gaye Galo CHIEF [employer] OFFICER-C Symptoms: I42.9 - Cardiomyopathy, unspecified Study Quality: Fair/contrast Conclusions: - Mildly dilated left ventricle with [id number] LV systolic dysfunction Findings Procedure Information Contrast agent, definity, is being given per protocol without apparent complications. Left Ventricle Mildly increased left ventricular cavity size. There is normal left ventricular wall thickness. The left ventricular systolic function is mild to moderately decreased. Diastolic function is indeterminate on the basis of available data. Pericardium/Pleural There is no evidence of pericardial effusion. Prior Study Comparison Changes noted compared to prior study dated: 07/05/2021. LV cavity is mildly dilated on this study Measurements 2D Linear Measurements IVSd: 1.06 0.6-0.9/0.6-1.0 cm LVIDd: 6.10 3.9-5.3/4.2-5.9 cm LVIDd Index: 2.54 2.4-3.2/2.2-3.1 cm/m2 LVIDs: 4.39 2.0-3.6 cm LVPWd: 1.04 0.7-1.1 cm LV Mass: 337.36 67-162/88-224 g LV Mass Index: 140.57 43-95/49-115 g/m2 LVOT Diam: 2.40 3.0+(-)1.3 cm 2D Systolic Function EF 4C: 47.60 >55% EF 2C: 33.20 >55% EF BiP: 41.30 >55% LVOT LVOT Pk Stevie: 0.65 LVOT Mn Stevie: 0.48 LVOT VTI: 0.15 LVOT Pk Grad: 2.00 LVOT Mn Grad: 1.00 LVOT Diam: 2.40 LVOT Area: 4.52 Updated in Other Vendor System with Status of Final Carlos Orlando MD electronically signed on 12/17/2021 2:02:05 PM with status of Final
== END ==
LOC: HO.CARD 10:09
PROVIDERS: Visit Provider Nurse Practitioner Family
DX: I42.9 Cardiomyopathy, unspecified (principal)
CPT/HCPCS: 93308; Q9957

== ENCOUNTER → 2022-03-04 13:37 | Outpatient (BNVA) | payer OTHER, SELFPAY | PROVIDERS: Visit Provider Internal Medicine Cardiovascular Disease | DX: I42.9 Cardiomyopathy, unspecified (principal); I50.9 Heart failure, unspecified; I48.91 Unspecified atrial fibrillation | CPT/HCPCS: 99212 ==

== ENCOUNTER → 2022-06-27 15:07 | Outpatient (BNVA) | payer OTHER, SELFPAY | PROVIDERS: Visit Provider Internal Medicine Cardiovascular Disease | DX: I48.91 Unspecified atrial fibrillation (principal); I42.9 Cardiomyopathy, unspecified; I50.9 Heart failure, unspecified; Z79.899 Other long term (current) drug therapy | CPT/HCPCS: 93005; 99212 ==

== ENCOUNTER → 2022-07-16 15:57 | Outpatient (REF) | payer OTHER, SELFPAY ==
--- NOTE | 2022-07-16 16:00 | CA_ITS ---
Transthoracic Echocardiogram Patient (Last, First, Middle): Stef Cordova A Gender: Male Date of : 1970 Age: 52 Procedure Date: 07/16/2022 Procedure Type: Transthoracic Echocardiogram Location: OP Height: 185.42 cm Weight: 122.47 kg BSA: 2.44 m2 Heart Rate: 88 bpm BP: 126 / 81 mmHg [place] Operator: Referring MD: Celio Ndiaye MD Throw Out Clerk: Celio Ndiaye MD Symptoms: I42.9 - Cardiomyopathy, unspecified Study Quality: Adequate ECG Rhythm: Sinus Conclusions: - Mildly increased left ventricular cavity size. There is normal left ventricular wall thickness. The left ventricular systolic function is mild to moderately decreased. The visually estimated ejection fraction is between 35-40%. - Normal right ventricular cavity size. There is low normal right ventricular systolic function. - There is mild dilatation of the sinuses of Valsalva measuring 4.10 cm and mild dilatation of the ascending aorta measuring 3.70 cm. Findings Left Ventricle Mildly increased left ventricular cavity size. There is normal left ventricular wall thickness. The left ventricular systolic function is mild to moderately decreased. The visually estimated ejection fraction is between 35-40%. There is evidence of regional wall motion abnormalities. Diastolic function is indeterminate on the basis of available data. Wall Motion Rest Echo Findings The basal inferior and basal inferoseptal segments are akinetic. Right Ventricle Normal right ventricular cavity size. There is low normal right ventricular systolic function. Atria The left atrium is mildly dilated. Aortic Valve The aortic valve was not well visualized. There is mild calcification of the aortic valve. There is no aortic valve stenosis. There is no aortic valve regurgitation. Mitral Valve Normal mitral valve structure and function. There is no mitral valve regurgitation. There is no mitral valve stenosis. Pulmonic Valve Normal pulmonic valve structure and function. There is no pulmonic valve regurgitation. Tricuspid Valve Normal tricuspid valve structure and function. Normal right atrial pressure. There is no evidence of pulmonary hypertension. Great Vessels There is mild dilatation of the sinuses of Valsalva measuring 4.10 cm and mild dilatation of the ascending aorta measuring 3.70 cm. The visualized portions of the pulmonary artery and branches are normal. Venous The inferior vena cava is normal in size and collapses greater than 50% with inspiration. Pericardium/Pleural There is no evidence of pericardial effusion. Prior Study Comparison No significant change compared to prior study dated: 12/17/2021. Measurements 2D Linear Measurements IVSd: 1.05 0.6-0.9/0.6-1.0 cm LVIDd: 5.91 3.9-5.3/4.2-5.9 cm LVIDd Index: 2.42 2.4-3.2/2.2-3.1 cm/m2 LVIDs: 4.51 2.0-3.6 cm LVPWd: 0.97 0.7-1.1 cm Ao Root: 4.10 2.1-3.5 cm LA Diam: 4.20 2.7-3.8/3.0-4.0 cm LAIDs Index: 1.72 1.5-2.3 cm/m2 LV Mass: 303.94 67-162/88-224 g LV Mass Index: 124.57 43-95/49-115 g/m2 LVOT Diam: 2.30 3.0+(-)1.3 cm 2D Systolic Function EF 4C: 38.30 >55% EF 2C: 39.30 >55% EF BiP: 38.90 >55% Mitral Valve MV Pk E: 0.62 MV Decel Time: 183.00 E'Lateral: 11.30 E'Medial: 7.07 E/E' Med: 8.70 E/E' Lat: 5.50 PHT: 54.00 MVA PHT: 4.07 Decel [place]: 3.36 Aortic Valve AoV Pk Stevie: 1.71 AoV Mn Stevie: 1.09 AoV VTI: 0.32 AoV Pk Grad: 12.00 Aov Mn Grad: 6.00 NGA Cont.VTI: 1.60 LVOT LVOT Pk Stevie: 0.61 LVOT Mn Stevie: 0.38 LVOT VTI: 0.12 LVOT Pk Grad: 1.00 LVOT Mn Grad: 1.00 LVOT Diam: 2.30 LVOT Area: 4.15 Diastolic Function MV Pk E: 0.62 E'Medial: 7.07 E/E' Med: 8.70 E' Laterial: 11.30 E/E' Lat: 5.50 Right Ventricle TAPSE (mm): 26.00 TVS' Stevie: 10.00 Tricuspid Valve TR Pk Stevie: 2.33 TR Pk Grad: 22.00 RA Press: 8.00 RVSP: 30.00 Great Vessels Aorta Ao Root-2D: 4.10 2.0-3.7 cm Sinus of Valsalva: 4.10 2.0-3.5 cm Ao Asc: 3.70 2.1-3.4 cm Pulmonary Valve PV Pk Stevie: 0.87 Peak PV Grad: 3.00 Updated in Other Vendor System with Status of Final Celio Ndiaye MD electronically signed on 07/17/2022 9:47:33 AM with status of Final
== END ==
LOC: HO.CARD 15:57
PROVIDERS: Visit Provider Internal Medicine Cardiovascular Disease
DX: I42.9 Cardiomyopathy, unspecified (principal)
CPT/HCPCS: 93306

== ENCOUNTER 2022-10-21 15:20 | Outpatient (AMB) | payer OTHER, SELFPAY ==
--- NOTE | 2022-10-21 15:28 | MHC.OFFVIS ---
Intake Vital Signs 10/21/22 15:34 Height 6 ft 1 in Weight 275 lb BMI 36.3 BP 100/80 Blood Pressure Location Rt brachial Position Sitting Intake Visit Reasons: 4 month follow up Intake Note: Patient is present for follow up Reports no chest pain or shortness of breath Blood Thinners: Xarelto EKG has been preformed Allergies No Known Allergies Allergy (Verified 10/21/22 15:37) Medication List - Last Reconciled 10/21/22 by Celio Ndiaye MD furosemide 40 mg PO BID 90 days metoprolol succinate ER 25 mg PO BID rivaroxaban (Xarelto) 20 mg PO QPM 90 days sacubitril-valsartan 24-26 mg (Entresto) 1 tab PO BID HPI HPI Comments History of Present Illness Details 52-year-old gentleman who is here for follow-up. He has cardiomyopathy and atrial fibrillation. He previously was cardioverted but developed atrial fibrillation. We referred him to electrophysiology for ablation. It appears he was set up for ablation but had some insurance issues and he canceled the procedure. He is saying that he is waiting for his insurance to change in October 2022. He is not taking Entresto currently because he ran out. He is denying any significant symptoms. EKG showing atrial fibrillation. He has been on amiodarone because previously our plan was to use short-term amiodarone and get him ablated and then stop the amiodarone. 10/21/2022: He returns for follow-up. He had echocardiography performed which showed EF of 35-40%. He was not consistently taking medications on last visit but has been taking medication regularly now. He is currently taking Toprol-XL 25 mg twice a day, Entresto 24-26 mg 1 tablet twice a day, Lasix 40 mg twice a day and rivaroxaban 20 mg daily. Clinically does not have any significant heart failure symptoms. Continues to be in atrial fibrillation. [facility] Medical History S/P transesophageal echocardiogram (KAPIL) Chronic back pain On beta elmer at home Atrial fibrillation CHF (congestive heart failure) Surgical History Hx of lumbar discectomy Family History Mother Irregular heart beat Father No problems noted. Social History Alcohol intake: never Patient Tobacco Use Status: Former Tobacco user Tobacco use type: Cigarette Cigarette Packs Per Day: 0.5 Cigarettes Per Day: 10 Years Smoked: 40 +/- service: No Current occupational status: unemployed Physical Exam Vital Signs: Last Vital Signs BP 100/80 10/21/22 15:34 BMI result Body Mass Index 36.3 GENERAL APPEARANCE: in no acute distress, pleasant. NECK: no carotid bruit, positive jugular venous distention. SKIN: no suspicious lesions, warm and dry. HEART: no murmurs, irregular rate and rhythm. LUNGS: clear to auscultation bilaterally. ABDOMEN: soft, nontender. PERIPHERAL PULSES: equal. NEUROLOGIC: No gross deficits, AAO X 3 Office Procedures EKG Details: Atrial fibrillation 91 beats per minute leftward axis, QTC 506 milliseconds, 59072-[id number], Complete Assessment & Plan Assessment & Plan (1) Atrial fibrillation: Code(s): I48.91 - Unspecified atrial fibrillation (2) Cardiomyopathy: Code(s): I42.9 - Cardiomyopathy, unspecified Plan 52-year-old gentleman with cardiomyopathy with EF of 35-40%. Initially it was felt to be related to alcohol use but he has not been drinking for long time and still has cardiomyopathy. Only factor is that he has been atrial fibrillation. He was cardioverted but went back into AFib. Initially was started him on amiodarone and referred him for EP evaluation and it appears he saw electrophysiology at [facility] and was being considered for ablation but his insurance did not cover further CT scan before relation. He is saying that his insurance is changing and he will be able to get the required imaging before ablation. We will refer him back to Dr. Soy Min at [facility]. He has cardiomyopathy with EF of 35-40%. I am adding Jardiance 10 mg daily. Follow-up in 4 months. Thank you for allowing me to participate in the care of your patient. Please feel free to contact me if you have any questions. Medications: New empagliflozin 10 mg PO DAILY 30 tabs 3RF I42.9 - Cardiomyopathy, unspecified Coding Level of Care Code Est Pt Level 4 (66988) Diagnoses Atrial fibrillation I48.91 Cardiomyopathy I42.9 CPT Codes EKG - CPT: 55759-[id number], Complete ([id number])
[2022-10-21 15:34] VITALS: BP 100/80; BMI 36.3
== END 2022-10-21 15:53 | disposition home or self-care (01) ==
PROVIDERS: Visit Provider Internal Medicine Cardiovascular Disease
DX: I48.91 Unspecified atrial fibrillation (principal); I42.9 Cardiomyopathy, unspecified
CPT/HCPCS: 93010; 99214

== ENCOUNTER → 2022-10-21 15:20 | Outpatient (BNVA) | payer OTHER, SELFPAY | PROVIDERS: Visit Provider Internal Medicine Cardiovascular Disease | DX: I48.91 Unspecified atrial fibrillation (principal); I42.9 Cardiomyopathy, unspecified | CPT/HCPCS: 93005; 99212 ==

== ENCOUNTER 2023-02-24 13:38 | Outpatient (AMB) | payer OTHER, SELFPAY ==
--- NOTE | 2023-02-24 14:11 | AM.OFFWIN_ITS ---
Intake Vital Signs 02/24/23 14:13 Height 6 ft 1 in Weight 280 lb 4 oz BMI 37.0 BP 110/70 Blood Pressure Location Lt brachial Position Sitting Pulse 74 Pulse Source Pulse Oximeter Temp 97.8 F Temp Source Temporal Artery Scan Pulse Oximetry (%) 97 Intake Visit Reasons: EST/rash on left arm (lobby) Intake Note: pt is here for c.o rash on left arm/elbow, stomach since summer time and needs a work note Patient Tobacco Use Status: Former Tobacco user Allergies No Known Allergies Allergy (Verified 02/24/23 14:11) Do you need a note to return to daycare/school/sports/work: Yes HPI HPI Comments History of Present Illness Details Patient presents to the walkin today requesting work note, has been out for 3 days and needs note to return. States was sick, feeling better now. Requesting note to return tomorrow. Patient also complaining of rash to right elbow, left knee/calf, abdomen and head that has been ongoing to years States will come and go. Got worse over the summer. Denies fever, chills, nausea, vomiting, diarrhea, headaches, fatigue, myalgias. [facility] Medical History S/P transesophageal echocardiogram (KAPIL) Chronic back pain On beta elmer at home Atrial fibrillation CHF (congestive heart failure) Surgical History Hx of lumbar discectomy Family History Mother Irregular heart beat Father No problems noted. Social History Alcohol intake: never Patient Tobacco Use Status: Former Tobacco user Tobacco use type: Cigarette Cigarette Packs Per Day: 0.5 Cigarettes Per Day: 10 Years Smoked: 40 +/- service: No Current occupational status: unemployed Review of Systems Const All systems reviewed & are unremarkable except as noted in HPI and below Physical Exam Vital Signs: Last Vital Signs Temp 97.8 F 02/24/23 14:13 Pulse 74 02/24/23 14:13 BP 110/70 02/24/23 14:13 Pulse Ox 97 01/15/24 14:13 BMI result Body Mass Index 37.0 General: awake, alert, oriented. Answers questions appropriately. Fully engaged in examination. Skin: warm, dry. inflamed skin with scaly, silvery plaques and defines border to right elbow, left knee/calf, abdomen and head. HEENT: Normocephalic. Hearing intact. Cardiac: External chest normal in appearance. Respiratory: No cough, audible wheezing or stridor. Abdomen: without gross distension. MS: No obvious swelling or deformities. Neurological: Oriented to person, place, time and situation. Thought process intact. No gait abnormalities appreciated. Psychiatric: Appropriate mood and affect. Good judgment and insight. Assessment & Plan Assessment & Plan (1) Plaque psoriasis: Code(s): L40.0 - Psoriasis vulgaris Plan History and physical exam consistent with plaque psoriasis Prednisone 50mg po daily for 5 days Work note provided, may return tomorrow Patient will establish with PCP. Advised will benefit from referral to Rheum for further eval of the psoriasis. All questions and concerns were addressed, patient agrees with plan Follow up here for any new or worsening symptoms. Medications: New prednisone 50 mg PO DAILY 5 tabs 0RF Coding Level of Care Code Est Pt Level 4 (67155) Diagnoses Plaque psoriasis L40.0
[2023-02-24 14:13] VITALS: BP 110/70; PULSE 74; TEMP 36.6; O2SAT 97; BMI 37.0
== END 2023-02-24 14:30 | disposition home or self-care (01) ==
PROVIDERS: Visit Provider Registered Nurse Emergency
DX: L40.0 Psoriasis vulgaris (principal)
CPT/HCPCS: 99213

== ENCOUNTER 2023-04-14 15:35 | Outpatient (AMB) | payer OTHER, SELFPAY ==
[2023-04-14 15:39] VITALS: BP 102/68; PULSE 87; O2SAT 96; BMI 37.2
--- NOTE | 2023-04-14 15:39 | MHC.PC.OV ---
Vital Signs 04/14/23 15:39 Height 6 ft 1 in Weight 282 lb BMI 37.2 BP 102/68 Blood Pressure Location Lt brachial Position Sitting Pulse 87 Pulse Source Pulse Oximeter Pulse Oximetry (%) 96 Oxygen Delivery Method Room Air Intake Visit Reasons: est care/ no prior PCP Intake Note: Pt is here today for New patient visit PE. Allergies No Known Allergies Allergy (Verified 04/14/23 15:48) Medication List - Last Reconciled 04/14/23 by BERENICE Eden empagliflozin (Jardiance) 10 mg PO DAILY furosemide 40 mg PO BID 90 days metoprolol succinate ER 50 mg PO DAILY rivaroxaban (Xarelto) 20 mg PO QPM 90 days sacubitril-valsartan 24-26 mg (Entresto) 1 tab PO BID Tobacco use date assessed: 04/14/23 Dental Screening Dental Screen Date: 04/14/23 Did you have a dental visit in the last 12 months?: No Did you have a dental problem in the last 6 months where you did not have access to dental care?: No Was dental information given to patient?: Patient declined HPI HPI Comments History of Present Illness Details Patient is a 52-year-old male here to establish care. He has not had a primary care provider in several years. He does have establish care with Cardiology. He has history of cardiomegaly, AFib, and congestive heart failure. He has an ablation procedure scheduled for next month. Will draw fasting labs. Will refer for colonoscopy. Will draw PSA. Will draw A1c. [facility] Medical History S/P transesophageal echocardiogram (KAPIL) Chronic back pain On beta elmer at home Atrial fibrillation CHF (congestive heart failure) Surgical History Hx of lumbar discectomy Family History Mother Irregular heart beat Father No problems noted. Social History Housing: House Alcohol intake: never Patient Tobacco Use Status: Current everyday Tobacco user Tobacco use type: Cigarette Cigarette Packs Per Day: 0.5 Cigarettes Per Day: 10 Years Smoked: 40 +/- e-Cigarette/Vaping Use: Never Used service: No Current occupational status: employed Cognitive needs: No Hearing needs: No Vision needs: No Questionnaire PHQ-9 Over the last 2 weeks, how often have you been bothered by any of the following problems? 1. Little interest or pleasure in doing things: not at all 2. Feeling down, depressed, or hopeless: not at all 3. Trouble falling or staying asleep, or sleeping too much: nearly every day 4. Feeling tired or having little energy: nearly every day 5. Poor appetite or overeating: more than half the days 6. Feeling bad about yourself - or that you are a failure or have let yourself or your family down: not at all 7. Trouble concentrating on things, such as reading the newspaper or watching television: not at all 8. Moving or speaking so slowly that other people could have noticed. Or the opposite - being so fidgety or restless that you have been moving around a lot more than usual: not at all 9. Thoughts that you would be better off or of hurting yourself in some way: not at all Total score: 8 Depression Screening Interpretation: Negative Depression Screening Done: Yes Source: Developed by Drs. Cristobal Wren, Mamta Oconnell, Stanley Hickey and colleagues, with an educational trenton from [employer]. Thrive Questionnaire Date Thrive assessed: 04/14/23 I am a: Patient What is your living situation today?: I have a steady place to live Within the past 12 months, did the food you bought not last and you didn't have the money to get more?: Never true Within the past 12 months, did you worry whether your food would run out before you got money to buy more?: Never true Do you have trouble paying for medicines?: No Do you have trouble getting transportation to medical appointments?: No Do you have trouble paying your heating and electricity bill?: No Do you have trouble taking care of your child, family member or friend?: No Do you have trouble with day-to-day activities such as bathing, preparing meals, shopping, managing finances, etc.?: No Are you currently unemployed and looking for a job?: No Are you interested in more education?: No Please select the resources that you would like help with: None THRIVE Score: 0 AUDIT C Alcohol Use Questionnaire (AUDIT-C) 1. How often do you have a drink containing alcohol?: Never 3. How often do you have six or more drinks on one occasion?: Never Total Score: 0 CARLA-7 AMB Questionnaire CARLA-7 Date CARLA - 7 assessed: 04/14/23 Feeling nervous, anxious, or on edge: 0 = Not at all Not being able to stop or control worryin = Not at all Worrying too much about different things: 0 = Not at all Trouble relaxin = Not at all Being so restless that it is hard to sit still: 0 = Not at all Becoming easily annoyed or irritable: 0 = Not at all Feeling afraid as if something awful might happen: 0 = Not at all Total CARLA-7 score (0-4 normal; 5-9 mild; 10-14 moderate; 15-21 severe): 0 Source: Developed by Drs. Cristobal Wren, Mamta Oconnell, Stanley Hickey and colleagues, with an educational trenton from [employer]. Review of Systems Const Details: Constitutional : No Weight loss, No Fever, No Chills, No Fatigue, No Malaise Cardiovascular : No Chest Pain, No SOB, No Dyspnea on Exertion, No Orthopnea, No Edema, No Palpitations Respiratory : No Cough, No Sputum, Admits snoring at night. Gastrointestinal : No Nausea, No Vomiting, No Diarrhea, No Constipation, No abdominal Pain, No Hematochezia, No Melena Genitourinary : No Dysuria, No Urinary Frequency, No Hematuria, Musculoskeletal : Admits lower back pain with right sided rediculopathy. Neuro : No Weakness, Admits some numbness on right big toe, No Dizziness, No Headache. Psych : No Anxiety/Panic, No Depression Heme/Lymph: No Bruising, No Bleeding,No Lymphadenopathy Endocrine : No Polyuria, No Polydipsia Skin: Admits psoriasis and eczema on scalp, elbows, bilateral arms. All other systems reviewed and are negative Physical exam (Primary Care) Vital Signs: Last Vital Signs Pulse 87 04/14/23 15:39 BP 102/68 04/14/23 15:39 Pulse Ox 96 04/14/23 15:39 Oxygen Delivery Method Room Air 04/14/23 15:39 BMI result Body Mass Index 37.2 Tobacco/Smoking Status: Tobacco use Status Tobacco use date assessed 04/14/23 04/14/23 15:45 Patient Tobacco Use Status Current everyday Tobacco 04/14/23 15:51 Tobacco use type Cigarette 04/14/23 15:39 e-Cigarette/Vaping Use Never Used 04/14/23 15:45 Depression Screening Interpretation: Negative Const Other: Appearance: Alert.? Oriented X3.? No acute distress.? Head: Normocephalic, atraumatic. Eyes: Pupils equal, round and reactive to light.? ENT: Pharynx normal.? Neck: Normal inspection.? Neck supple.? CVS: Normal heart rate. Patient is in AFIB.? Pulses normal.? Respiratory: No respiratory distress.? Breathe sounds slightly diminshed bialterally. ? Skin: Flaking raise patches on arms bilaterally. Flaking on scalp. ? Extremities: No lower extremity edema.? No calf ttp. 5/5 strength to bilateral upper and lower extremities Back: No midline tenderness, no C-spine tenderness, full range of motion, no CVA tenderness bilaterally Neuro: Oriented X 3.? No motor deficit.? No sensory deficit. CN 2-12 intact Assessment and Plan Assessment & Plan (1) Plaque psoriasis: Comment: Will give prednisone, will give triamcinolone. Will give referral to Dermatology. Code(s): L40.0 - Psoriasis vulgaris (2) Lower back pain: Code(s): M54.50 - Low back pain, unspecified Qualifiers: Back pain laterality: unspecified Chronicity: unspecified Sciatica laterality: sciatica of right side Sciatica presence: with sciatica Qualified Code(s): M54.41 - Lumbago with sciatica, right side Plan: Will obtain x-ray patient's lower back. Patient has been educated he should refrain from using Motrin NSAIDs due to being on blood thinners. Patient has been educated he can use Aleve cream, Tylenol, or Salonpas. (3) Snoring: Comment: Patient frequently snores and gets restless sleep. Will refer to Sleep Medicine for evaluation of sleep apnea. Code(s): R06.83 - Snoring Plan: Take your medications as prescribed. If you were prescribed antibiotics today, it is important that you take your medication to their entirety, do not skip any doses, do not finish them early. Follow-up with your primary care provider this week. Return to the emergency department with new or worsening symptoms. Such as fevers, chills, chest pain, shortness of breath, nausea, vomiting, dizziness, headache, vision changes, lethargy In case of emergency call 911 Plan Patient will follow-up with physical exam in 5 months Orders: Orders Vitamin D 25-OH (D2 and D3) Today Z13.21 - Encounter for screening for nutritional disorder Vitamin B6 Today Z13.21 - Encounter for screening for nutritional disorder TSH reflex Free T4 Today Z13.29 - Encounter for screening for other suspected endocrine disorder Complete Blood Count Auto Diff Today Z13.0 - Encounter for screening for diseases of the blood and blood-forming organs and certain disorders involving the immune mechanism PSA,Total (Free>4and<10) Today Z12.5 - Encounter for screening for malignant neoplasm of prostate Vitamin B12 Today Z13.21 - Encounter for screening for nutritional disorder UA CC w/rflx Micro + Cult Today Z13.89 - Encounter for screening for other disorder Lipid Panel Today Z13.220 - Encounter for screening for lipoid disorders Comprehensive Met. Panel Today Z91.89 - Other specified personal risk factors, not elsewhere classified XR lumbar spine 2-3V Today M54.50 - Low back pain, unspecified Hemoglobin A1c Today Z13.1 - Encounter for screening for diabetes mellitus Referrals Sleep Medicine Referral R06.83 - Snoring Dermatology Referral L40.0 - Psoriasis vulgaris Medications: New prednisone 20 mg PO BID 10 tabs 0RF triamcinolone acetonide 0.5% 1 appl topical DAILY 15 grams 0RF Coding Level of Care Code Est Pt Level 3 (57973) Diagnoses Plaque psoriasis L40.0 Low back pain with right-sided sciatica, unspecified back pain laterality, unspecified chronicity M54.41 Back pain laterality: unspecified Chronicity: unspecified Sciatica laterality: sciatica of right side Sciatica presence: with sciatica Snoring R06.83
== END 2023-04-14 16:54 | disposition home or self-care (01) ==
PROVIDERS: Visit Provider Nurse Practitioner Primary Care
DX: L40.0 Psoriasis vulgaris (principal); M54.41 Lumbago with sciatica, right side; R06.83 Snoring
CPT/HCPCS: 99214

== ENCOUNTER 2023-06-25 13:38 | Outpatient (AMB) | payer OTHER, SELFPAY ==
[2023-06-25 13:46] VITALS: BP 120/52; PULSE 68; BMI 35.8
--- NOTE | 2023-06-25 13:46 | A.OFFVIS_ITS ---
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 He has cardiomyopathy and atrial fibrillation. He previously was cardioverted but developed atrial fibrillation. We referred him to electrophysiology for ablation. It appears he was set up for ablation but had some insurance issues and he canceled the procedure. He is saying that he is waiting for his insurance to change in October 2022. He is not taking Entresto currently because he ran out. He is denying any significant symptoms. EKG showing atrial fibrillation. He has been on amiodarone because previously our plan was to use short-term amiodarone and get him ablated and then stop the amiodarone. 10/21/2022: He returns for follow-up. He had echocardiography performed which showed EF of 35-40%. He was not consistently taking medications on last visit but has been taking medication regularly now. He is currently taking Toprol-XL 25 mg twice a day, Entresto 24-26 mg 1 tablet twice a day, Lasix 40 mg twice a day and rivaroxaban 20 mg daily. Clinically does not have any significant heart failure symptoms. Continues to be in atrial fibrillation. 06/25/2023: He returns for follow-up. He is status post ablation. EKGs showing sinus rhythm. He is taking medications regularly including metoprolol succinate, rivaroxaban, Entresto and Jardiance. He is on 40 mg twice a day IV Lasix. Clinically euvolemic. He has not had any echocardiography for many months. [facility] Medical History (Updated 04/14/23 @ 16:30 by BERENICE Eden) S/P transesophageal echocardiogram (KAPIL) Chronic back pain On beta elmer at home Atrial fibrillation CHF (congestive heart failure) Surgical History (Updated 06/25/23 @ 13:54 by Roseline Cottrell [facility]) S/P ablation of accessory bypass tract Hx of lumbar discectomy Family History Mother Irregular heart beat Father No problems noted. Social History Housing: House Alcohol intake: never Patient Tobacco Use Status: Current everyday Tobacco user Tobacco use type: Cigarette Cigarette Packs Per Day: 0.5 Cigarettes Per Day: 10 Years Smoked: 40 +/- e-Cigarette/Vaping Use: Never Used service: No Current occupational status: employed Cognitive needs: No Hearing needs: No Vision needs: No Review of Systems Const Denies chills, Denies fatigue, Denies fever(s), Denies frequent falls, Denies weakness, Denies weight gain and Denies weight loss ENT Denies dizziness Card Denies chest pain, Denies leg edema, Denies lightheadedness, Denies palpitations, Denies dyspnea and Denies dyspnea on exertion Resp Denies cough, Denies dyspnea and Denies dyspnea on exertion GI Denies hematochezia Musc Denies abnormal gait, Denies muscle weakness, Denies numbness, Denies radiating pain into limb and Denies tingling Neuro Denies abnormal gait, Denies dizziness, Denies frequent falls, Denies numbness, Denies tingling and Denies weakness Endo Denies fatigue and Denies palpitations Physical Exam Vital Signs: Last Vital Signs Pulse 68 06/25/23 13:46 BP 120/52 L 06/25/23 13:46 BMI result Body Mass Index 35.8 GENERAL APPEARANCE: in no acute distress, pleasant. NECK: no carotid bruit, positive jugular venous distention. SKIN: no suspicious lesions, warm and dry. HEART: no murmurs, irregular rate and rhythm. LUNGS: clear to auscultation bilaterally. ABDOMEN: soft, nontender. PERIPHERAL PULSES: equal. NEUROLOGIC: No gross deficits, AAO X 3 Office Procedures EKG Details: Sinus rhythm 69 beats per minute, rightward axis, nonspecific T-wave changes, QTC 460 milliseconds. [id number], Complete Assessment & Plan Assessment & Plan (1) Cardiomyopathy: Code(s): I42.9 - Cardiomyopathy, unspecified Category: Medical (2) Atrial fibrillation: Code(s): I48.91 - Unspecified atrial fibrillation Category: Medical Plan [age] year gentleman who presents for follow-up. He had longstanding atrial fibrillation and cardiomyopathy on background of alcohol use. He had complete abstinence and was taking medication regularly but had some delay in ablation due to insurance issues. He is now status post AFib ablation and is in sinus rhythm. Clinically euvolemic. Doing well. Feeling energetic compared to when he was in AFib. We will arrange echocardiography to reassess the cardiomyopathy. Follow-up in the office in 4 months. Thank you for allowing me to participate in the care of your patient. Please feel free to contact me if you have any questions. Orders: Orders CA echo transthoracic complete Today I42.9 - Cardiomyopathy, unspecified Medications: Refilled metoprolol succinate ER 50 mg PO DAILY 90 tabs 3RF I42.9 - Cardiomyopathy, unspecified Coding Level of Care Code Est Pt Level 4 (45670) Diagnoses Cardiomyopathy I42.9 Atrial fibrillation I48.91 CPT Codes EKG - CPT: 01114-[id number], Complete ([id number])
== END 2023-06-25 14:14 | disposition home or self-care (01) ==
PROVIDERS: Visit Provider Internal Medicine Cardiovascular Disease
DX: I42.9 Cardiomyopathy, unspecified (principal); I48.91 Unspecified atrial fibrillation
CPT/HCPCS: 93010; 99214

== ENCOUNTER → 2023-06-25 13:38 | Outpatient (BNVA) | payer OTHER, SELFPAY | PROVIDERS: Visit Provider Internal Medicine Cardiovascular Disease | DX: I42.9 Cardiomyopathy, unspecified (principal); I48.91 Unspecified atrial fibrillation; Z79.01 Long term (current) use of anticoagulants; Z79.899 Other long term (current) drug therapy | CPT/HCPCS: 93005 ==

== ENCOUNTER → 2023-07-15 15:03 | Outpatient (REF) | payer OTHER, SELFPAY ==
--- NOTE | 2023-07-15 15:07 | CA_ITS ---
Transthoracic Echocardiogram Patient (Last, First, Middle): Stef Cordova A Gender: Male Date of : 1970 Age: 53 Procedure Date: 07/15/2023 Procedure Type: Transthoracic Echocardiogram Location: OP Height: 185.42 cm Weight: 119.3 kg BSA: 2.42 m2 Heart Rate: bpm BP: 102 / 62 mmHg Web Interface Developer: TO Referring MD: Celio Ndiaye MD Historian Dramatic Arts: Carlos Orlando MD Symptoms: I42.9 - Cardiomyopathy, unspecified Study Quality: Fair, contrast ECG Rhythm: Sinus Conclusions: - 1. Normal LV ejection fraction 55-60% 2. Bicuspid aortic valve with mild aortic stenosis 3. Mildly dilated ascending aorta 4. No gross pericardial effusion Findings Procedure Information Contrast agent, definity, is being given per protocol without apparent complications. Left Ventricle Normal left ventricular size, thickness, and systolic function. The visually estimated ejection fraction is between 55-60%. Spectral Doppler is indicative of a normal filling pattern. Right Ventricle Normal right ventricular cavity size and systolic function. Atria The left atrium is likely dilated. Interatrial shunt cannot be excluded. The right atrium is normal in size. Aortic Valve There is a bicuspid aortic valve. There is mild aortic valve stenosis. The peak aortic gradient is 18 mmHg.The mean gradient is 11 mmHg. There is no aortic valve regurgitation. Mitral Valve Normal mitral valve structure and function. There is trace mitral valve regurgitation. There is no mitral valve stenosis. Pulmonic Valve The pulmonic valve was not well visualized. Tricuspid Valve Likely normal tricuspid valve structure and function. Tricuspid regurgitation envelope is inadequate for calculation of right ventricular systolic pressure. Normal right atrial pressure. Great Vessels The pulmonary artery was not well visualized. There is mild dilatation of the ascending aorta measuring 3.70 cm. Venous The inferior vena cava is normal in size and collapses greater than 50% with inspiration. Pericardium/Pleural There is no evidence of pericardial effusion. Prior Study Comparison Changes noted compared to prior study dated: 07/16/2022. LV systolic function is normal. There is mild aortic stenosis noted Measurements 2D Linear Measurements RVIDd: 4.56 IVSd: 0.87 0.6-0.9/0.6-1.0 cm LVIDd: 5.75 3.9-5.3/4.2-5.9 cm LVIDd Index: 2.38 2.4-3.2/2.2-3.1 cm/m2 LVIDs: 3.79 2.0-3.6 cm LVPWd: 0.94 0.7-1.1 cm LA Diam: 4.10 2.7-3.8/3.0-4.0 cm LAIDs Index: 1.69 1.5-2.3 cm/m2 LV Mass: 250.05 67-162/88-224 g LV Mass Index: 103.33 43-95/49-115 g/m2 LVOT Diam: 2.50 3.0+(-)1.3 cm 2D Volumes LA ESV A/L: 31.90 22-52/18-58 ML/M2 RA ESV A/L: 26.50 19-21 ML/M2 2D Systolic Function EF Teich: 62.20 >55% EF 4C: 56.50 >55% EF 2C: 60.50 >55% EF BiP: 58.60 >55% Mitral Valve MV Pk E: 0.72 MV PK A: 0.37 MV Decel Time: 243.00 E/A: 1.90 E'Lateral: 9.36 E'Medial: 7.18 E/E' Med: 10.00 E/E' Lat: 7.60 PHT: 71.00 MVA PHT: 3.10 Decel [place]: 2.95 Aortic Valve AoV Pk Stevie: 2.13 AoV Mn Stevie: 1.58 AoV VTI: 0.49 AoV Pk Grad: 18.00 Aov Mn Grad: 11.00 NGA Cont.VTI: 1.33 LVOT LVOT Pk Stevie: 0.62 LVOT Mn Stevie: 0.46 LVOT VTI: 0.13 LVOT Pk Grad: 2.00 LVOT Mn Grad: 1.00 LVOT Diam: 2.50 LVOT Area: 4.91 Diastolic Function MV Pk E: 0.72 MV Pk A: 0.37 E/A: 1.90 E'Medial: 7.18 E/E' Med: 10.00 E' Laterial: 9.36 E/E' Lat: 7.60 IVC Diam Exp: 1.46 Right Ventricle TAPSE (mm): 2.62 TVS' Stevie: 13.90 Tricuspid Valve RA Press: 3.00 IVC Diam Exp: 1.46 Great Vessels Aorta Sinus of Valsalva: 4.30 2.0-3.5 cm Ao Asc: 3.70 2.1-3.4 cm Ao Arch: 3.30 Updated in Other Vendor System with Status of Final Carlos Orlando MD electronically signed on 07/20/2023 12:57:33 PM with status of Final
== END ==
LOC: HO.CARD 15:03
PROVIDERS: Visit Provider Internal Medicine Cardiovascular Disease
DX: I42.9 Cardiomyopathy, unspecified (principal)
CPT/HCPCS: 93306; Q9957

== ENCOUNTER → 2023-07-15 15:07 | Outpatient (BNV) | payer OTHER, SELFPAY | PROVIDERS: Visit Provider Internal Medicine Cardiovascular Disease | DX: Q23.1 Congenital insufficiency of aortic valve (principal) | CPT/HCPCS: 93303; 93320; 93325 ==

== ENCOUNTER 2024-01-16 12:05 | Outpatient (AMB) | payer OTHER, SELFPAY ==
--- NOTE | 2024-01-16 12:26 | A.OFFPC_ITS ---
Vital Signs 01/16/24 12:27 Height 6 ft 1 in Weight 269 lb BMI 35.5 BP 114/72 Blood Pressure Location Lt brachial Position Sitting Pulse 68 Pulse Source Pulse Oximeter Pulse Oximetry (%) 95 Oxygen Delivery Method Room Air Intake Visit Reasons: Transfer from [facility], requesting a PE Intake Note: Pt is here today for PE transfer of care from [facility]. Allergies No Known Allergies Allergy (Verified 01/16/24 12:28) Medication List - Last Reconciled 01/16/24 by Cony Martini MD empagliflozin (Jardiance) 10 mg PO DAILY furosemide 40 mg PO BID 90 days metoprolol succinate ER 50 mg PO DAILY rivaroxaban (Xarelto) 20 mg PO QPM 90 days sacubitril-valsartan 24-26 mg (Entresto) 1 tab PO BID Tobacco use date assessed: 01/16/24 Dental Screening Dental Screen Date: 04/14/23 HPI Transfer from [facility], requesting a PE HPI Details Pt presents for PE. Past medical history includes cardiomyopathy with ejection fraction 20 to 25% secondary to alcohol abuse and atrial fibrillation admitted to [facility] in 06/29/2021. Patient failed cardioversion and amiodarone trial and underwent catheter ablation in 05/[address] Min at [facility]. Echocardiogram in July showed recovered ejection fraction at 55-60%, mild and bicuspid aortic valve. Patient has stopped taking Jardiance because of the high co-payment. He is feeling better denies chest pain shortness of breath PND orthopnea. 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 Social History (Updated 01/16/24 @ 13:09 by Cony Martini MD) Household Members Other:: single, 1 adult child, mainteince Housing: House Alcohol intake: never Patient Tobacco Use Status: Current everyday Tobacco user Tobacco use type: Cigarette Cigarette Packs Per Day: 0.5 Cigarettes Per Day: 10 Years Smoked: 40 +/- e-Cigarette/Vaping Use: Never Used service: No Current occupational status: employed Cognitive needs: No Hearing needs: No Vision needs: No Questionnaire PHQ-9 Over the last 2 weeks, how often have you been bothered by any of the following problems? 1. Little interest or pleasure in doing things: not at all 2. Feeling down, depressed, or hopeless: not at all 3. Trouble falling or staying asleep, or sleeping too much: not at all 4. Feeling tired or having little energy: not at all 5. Poor appetite or overeating: not at all 6. Feeling bad about yourself - or that you are a failure or have let yourself or your family down: not at all 7. Trouble concentrating on things, such as reading the newspaper or watching television: not at all 8. Moving or speaking so slowly that other people could have noticed. Or the opposite - being so fidgety or restless that you have been moving around a lot more than usual: not at all 9. Thoughts that you would be better off or of hurting yourself in some way: not at all Total score: 0 Depression Screening Interpretation: Negative Depression Screening Done: Yes 04674 - PHQ-9 Billing: Yes Source: Developed by Drs. Cristobal Wren, Mamta Oconnell, Stanley Hickey and colleagues, with an educational trenton from [employer]. Thrive Questionnaire Date Thrive assessed: 01/16/24 I am a: Patient What is your living situation today?: I have a steady place to live Within the past 12 months, did the food you bought not last and you didn't have the money to get more?: I choose not to answer this question Within the past 12 months, did you worry whether your food would run out before you got money to buy more?: I choose not to answer this question Do you have trouble paying for medicines?: Yes Do you have trouble getting transportation to medical appointments?: No Do you have trouble paying your heating and electricity bill?: No Do you have trouble taking care of your child, family member or friend?: No Do you have trouble with day-to-day activities such as bathing, preparing meals, shopping, managing finances, etc.?: I choose not to answer this question Are you currently unemployed and looking for a job?: No Are you interested in more education?: No Please select the resources that you would like help with: None Currently or been in a relationship where the following occur: I choose not to answer THRIVE Score: 0 AUDIT C Alcohol Use Questionnaire (AUDIT-C) 1. How often do you have a drink containing alcohol?: Never Total Score: 0 CARLA-7 AMB Questionnaire CARLA-7 Date CARLA - 7 assessed: 01/16/24 Feeling nervous, anxious, or on edge: 0 = Not at all Not being able to stop or control worryin = Not at all Worrying too much about different things: 0 = Not at all Trouble relaxin = Not at all Being so restless that it is hard to sit still: 0 = Not at all Becoming easily annoyed or irritable: 0 = Not at all Feeling afraid as if something awful might happen: 0 = Not at all Total CARLA-7 score (0-4 normal; 5-9 mild; 10-14 moderate; 15-21 severe): 0 Source: Developed by Drs. Cristobal Wren, Mamta Oconnell, Stanley Hickey and colleagues, with an educational trenton from [employer]. CARLA-7 Assessment Billing CARLA-7 Assessment Tool: CARLA-7 Assessment 93069 Review of Systems Const All systems reviewed & are unremarkable except as noted in HPI and below Eyes Reports no additional complaints ENT Reports no additional complaints Card Reports no additional complaints Resp Reports no additional complaints GI Reports no additional complaints Reports no additional complaints Physical exam (Primary Care) Vital Signs: Last Vital Signs Pulse 68 01/16/24 12:27 BP 114/72 01/16/24 12:27 Pulse Ox 95 01/16/24 12:27 Oxygen Delivery Method Room Air 01/16/24 12:27 BMI result Body Mass Index 35.5 Tobacco/Smoking Status: Tobacco use Status Tobacco use date assessed 01/16/24 01/16/24 12:30 Patient Tobacco Use Status Current everyday Tobacco 01/16/24 12:30 Tobacco use type Cigarette 01/16/24 12:30 e-Cigarette/Vaping Use Never Used 01/16/24 12:30 PHQ-9: PHQ-9 Score PHQ-9: Total score 0 01/16/24 12:30 Depression Screening Interpretation: Negative Thrive Assessment: Date of Thrive Assessment Date Thrive assessed 01/16/24 01/16/24 12:30 Currently or been in a relationship where the following occur: I choose not to answer Const General: no acute distress HENMT Head: Yes normal to inspection Ears: hearing grossly normal bilaterally Face and sinus: Yes normal facial exam Mouth: Normal oral and palatal mucosa present Throat: Yes posterior oropharynx normal Eyes General: appearance normal, both eyes and all related structures Neck Neck: Yes no lymphadenopathy and Yes supple Resp Effort & Inspection: normal respiratory effort Auscultation: clear to auscultation bilaterally Cardio Rhythm: regular rhythm Heart sounds: S1 normal heart sound present and S2 normal heart sound present GI Inspection: Yes normal to inspection Palpation (GI): Soft to palpation Percussion: Yes normal to percussion Auscultation: normal bowel sounds Extrem Other: 2+ pitting edema bilaterally Coding Level of Care Code Est Pt Prev Care 40-64y(14793) Diagnoses Atrial fibrillation I48.91 HFrEF (heart failure with reduced ejection fraction) I50.20 Annual physical exam Z00.00 Tobacco dependence F17.200 History of alcohol abuse F10.11 Additional Codes CARLA-7 Assessment Billing - CARLA-7 Assessment Tool: CARLA-7 Assessment 62186 ([id number]) PHQ-9 - 74987 - PHQ-9 Billing: Yes ([id number]) Assessment & Plan Assessment & Plan (1) Atrial fibrillation: Comment: 06/2021, status post catheter ablation June 03 Code(s): I48.91 - Unspecified atrial fibrillation Category: Medical Plan: Continue metoprolol and Xarelto for now. Patient will follow-up with [facility] (2) HFrEF (heart failure with reduced ejection fraction): Comment: ETOH related cardiomyopathy and A fib with RVR EF 15-20% 06/2021, EF 40% 06/2022, S/P CATHETER ABLATION 05/2023 by , Echo 07/2023 EF 55-60%, BICUSPID AORTIC VALVE, MILD AORTIC STENOSIS. Ascending aorta dilatation. Patient can not afford Jardiance and Entresto Code(s): I50.20 - Unspecified systolic (congestive) heart failure Category: Medical Plan: Continue metoprolol and furosemide for chronic lower extremity edema, patient has 2 months' supply of Entresto which he will complete and then follow-up. He can not afford Jardiance (3) Annual physical exam: Code(s): Z00.00 - Encounter for general adult medical examination without abnormal findings Category: Medical Plan: Well-balanced diet regular physical activity weight loss discussed with the patient. He has an appointment scheduled with GI to discuss colonoscopy. Patient will return for fasting blood work (4) Tobacco dependence: Comment: 1/2 PPD x 15 yrs Code(s): F17.200 - Nicotine dependence, unspecified, uncomplicated Category: Medical Plan: Tobacco quitting discussed with the patient (5) History of alcohol abuse: Comment: quit 2022 Code(s): F10.11 - Alcohol abuse, in remission Category: Medical Plan: Patient has been sober for over a year Orders: Orders Comprehensive [place]. Panel Fast Today I42.9 - Cardiomyopathy, unspecified, I48.91 - Unspecified atrial fibrillation, I50.20 - Unspecified systolic (congestive) heart failure Lipid Panel Today I42.9 - Cardiomyopathy, unspecified, I48.91 - Unspecified atrial fibrillation, I50.20 - Unspecified systolic (congestive) heart failure TSH reflex Free T4 Today I42.9 - Cardiomyopathy, unspecified, I48.91 - Unspecified atrial fibrillation, I50.20 - Unspecified systolic (congestive) heart failure PSA,Total (Free>4and<10) Today I42.9 - Cardiomyopathy, unspecified, I48.91 - Unspecified atrial fibrillation, I50.20 - Unspecified systolic (congestive) heart failure UA w Microscopic Today I42.9 - Cardiomyopathy, unspecified, I48.91 - Unspecified atrial fibrillation, I50.20 - Unspecified systolic (congestive) heart failure ECG 7 day holter monitor Today I42.9 - Cardiomyopathy, unspecified, I48.91 - Unspecified atrial fibrillation, I50.20 - Unspecified systolic (congestive) heart failure Complete Blood Count Auto Diff Today I42.9 - Cardiomyopathy, unspecified, I48.91 - Unspecified atrial fibrillation, I50.20 - Unspecified systolic (co ngestive) heart failure Medications: New prednisone 50 mg PO DAILY 5 tabs 0RF triamcinolone acetonide 0.5% 1 appl topical DAILY 45 grams 1RF Refilled rivaroxaban (Xarelto) 20 mg PO QPM 90 days 90 tabs 3RF furosemide 40 mg PO BID 90 days 180 tabs 3RF metoprolol succinate ER 50 mg PO DAILY 90 tabs 3RF I42.9 - Cardiomyopathy, unspecified Discontinued empagliflozin (Jardiance) Discontinued Reason: Doctor's Order 10 mg PO DAILY 30 tabs 5RF I42.9 - Cardiomyopathy, unspecified
[2024-01-16 12:27] VITALS: BP 114/72; PULSE 68; O2SAT 95; BMI 35.5
== END 2024-01-16 13:25 | disposition home or self-care (01) ==
PROVIDERS: Visit Provider Internal Medicine
DX: I48.91 Unspecified atrial fibrillation (principal); I50.20 Unspecified systolic (congestive) heart failure; Z00.00 Encounter for general adult medical examination without abnormal findings; F17.200 Nicotine dependence, unspecified, uncomplicated; F10.11 Alcohol abuse, in remission

== ENCOUNTER → 2024-01-16 12:05 | Outpatient (BNVA) | payer OTHER, SELFPAY | PROVIDERS: Visit Provider Internal Medicine | DX: Z00.00 Encounter for general adult medical examination without abnormal findings (principal); I48.91 Unspecified atrial fibrillation; I50.20 Unspecified systolic (congestive) heart failure; I42.9 Cardiomyopathy, unspecified; F17.210 Nicotine dependence, cigarettes, uncomplicated; F10.11 Alcohol abuse, in remission; Z79.01 Long term (current) use of anticoagulants; Z79.899 Other long term (current) drug therapy | CPT/HCPCS: 96127 ==

== ENCOUNTER → 2024-01-23 11:26 | Outpatient (REF) | payer OTHER, SELFPAY | LOC: HO.CARD 11:26 | PROVIDERS: Visit Provider Internal Medicine | DX: I48.91 Unspecified atrial fibrillation (principal); I50.20 Unspecified systolic (congestive) heart failure; I42.9 Cardiomyopathy, unspecified | CPT/HCPCS: 93242 ==

== ENCOUNTER → 2024-01-23 11:28 | Outpatient (BNV) | payer OTHER, SELFPAY | PROVIDERS: Visit Provider Internal Medicine | DX: I47.10 Supraventricular tachycardia, unspecified (principal) | CPT/HCPCS: 93244 ==

== ENCOUNTER 2024-02-02 15:03 | Outpatient (AMB) | payer OTHER, SELFPAY ==
[2024-02-02 15:04] VITALS: BP 106/62; PULSE 68; O2SAT 96; BMI 37.2
--- NOTE | 2024-02-02 15:04 | MHC.OFFVIS ---
Vital Signs 02/02/24 15:04 Height 6 ft 1 in Weight 282 lb 3.067 oz BMI 37.2 BP 106/62 Blood Pressure Location Rt brachial Position Sitting Pulse 68 Pulse Source Pulse Oximeter Pulse Oximetry (%) 96 Oxygen Delivery Method Room Air Intake Visit Reasons: Routine colo consult Intake Note: NEW PATIENT Stef presents in office today for a scheduled colo scrn Prior hx of colo/egd? N, initial Meds and Allergies reviewed? Y Any significant concerns or questions? Pt has hx of afib Pharmacy verified? [facility] Dr [place] Important FMHx? N Allergies No Known Allergies Allergy (Verified 02/02/24 15:04) HPI HPI Routine colo consult: Details: 53 year old? male with past medical history of obesity, tobacco dependence, heart failure with reduced ejection fraction, plaque psoriasis, AFib, status post ablation is here today for pre colonoscopy screening.? Patient was sent to us by his PCP.? This is his first colonoscopy screening.? Patient denies any gastrointestinal symptoms in the past or at present.? Denies any personal or family history of gastrointestinal disease, colon polyps, or CRC.? Denies history of difficulty with sedation or anesthesia in the past.? Negative for history of sleep apnea.? Denies any history of renal, pulmonary, or hepatic disease.??History of AFib had ablation which was successful. Currently he is taking Entresto and Xarelto. Has a follow-up with Dr. Ndiaye who is his communication spec in February will ask for risk stratification before sending him for procedure. No history of infectious? diseases like hepatitis A, B, C, HIV or tuberculosis.? PFSH Medical History Chronic back pain Atrial fibrillation Surgical History S/P ablation of accessory bypass tract Hx of lumbar discectomy Family History Mother Irregular heart beat Father No problems noted. 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 Housing: House Alcohol intake: never Patient Tobacco Use Status: Current everyday Tobacco user Tobacco use type: Cigarette Cigarette Packs Per Day: 0.5 Cigarettes Per Day: 10 Years Smoked: 40 +/- e-Cigarette/Vaping Use: Never Used service: No Current occupational status: employed Cognitive needs: No Hearing needs: No Vision needs: No Review of Systems Const Denies weight gain and Denies weight loss ENT Reports no additional complaints, Denies dysphagia and Denies odynophagia Card Reports no additional complaints Resp Reports no additional complaints GI Denies abdominal pain, Denies belching, Denies melena, Denies bloating, Denies change in bowel habits, Denies dysphagia, Denies excessive flatus, Denies dyspepsia, Denies heartburn, Denies diarrhea, Denies loose stools, Denies nausea, Denies odynophagia and Denies vomiting Reports no additional complaints Musc Reports no additional complaints Neuro Reports no additional complaints Psych Reports no additional complaints Endo Reports no additional complaints Physical Exam Vital Signs: Last Vital Signs Pulse 68 02/02/24 15:04 BP 106/62 02/02/24 15:04 Pulse Ox 96 02/02/24 15:04 Oxygen Delivery Method Room Air 02/02/24 15:04 BMI result Body Mass Index 37.2 Const General: healthy appearing and no acute distress Nutritional Appearance: obese Orientation/consciousness: patient oriented x3 Resp Effort & Inspection: normal respiratory effort, able to speak in complete sentences, no tracheal deviation and symmetric chest movement Auscultation: clear to auscultation bilaterally Cardio Rate: regular rate GI Inspection: Yes normal to inspection, No distended and Yes obesity Palpation (GI): Soft to palpation, not firm, nontender and No hepatosplenomegaly present Auscultation: normal bowel sounds General: Yes no CVA tenderness Back/Spine/Pelvis Back: no CVA tenderness Skin General skin exam: elasticity normal, turgor normal and dry skin Neuro General: patient oriented x3 Psych Appearance: grossly normal Mental Status: mental status grossly normal Assessment & Plan Assessment & Plan (1) Screen for colon cancer: Code(s): Z12.11 - Encounter for screening for malignant neoplasm of colon Plan Patient denies any GI, cardiac or respiratory symptoms.? Denies any issues with anesthesia in the past.? Denies any history of sleep apnea.? No history infectious diseases in the past or present.? Patient is on Xarelto. History of AFib currently in sinus ribbon status post ablation. Patient has appointment with communication spec in February we will ask for risk stratification and went to stop Xarelto before going for procedure. No family or personal history of colon cancer or polyps.? Patient denies melena, hematochezia, unintentional weight loss or ribbon like stools.? Discussed at length the pre-procedure,? prep, diet & medications as well as what to expect prior, during and after the procedure.?? Stressed the importance of good bowel prep.? Recommended the use of Vaseline or Calmoseptine OTC & baby wipes with bowel movements to promote comfort.? ?Patient verbalizes understanding and agrees to plan of care.? He was given the opportunity to ask questions and all questions answered.? We will see him after the procedure.? Medications: New bisacodyl (Dulcolax (bisacodyl)) Start taking 2 tablet every night 7 days before the procedure and 1 day before procedure take 4 tablets at noon time followed by MiraLax prep 10 mg (2 x 5 mg) PO BEDTIME 16 tabs 0RF Z12.11 - Encounter for screening for malignant neoplasm of colon polyethylene glycol 3350 (Miralax) As directed by gastroenterology department at [facility] 238 grams PO ONCE 238 grams 0RF Z12.11 - Encounter for screening for malignant neoplasm of colon Coding Level of Care Code New Pt Level 3 (52676) Diagnoses Screen for colon cancer Z12.11 Time Spent (min) 40 Comment 30 minutes spent with patient and additional 10 minutes spent reviewing his records
== END 2024-02-02 16:05 | disposition home or self-care (01) ==
PROVIDERS: Visit Provider Nurse Practitioner Family
DX: Z01.818 Encounter for other preprocedural examination (principal); Z12.11 Encounter for screening for malignant neoplasm of colon
CPT/HCPCS: 99202

== ENCOUNTER 2024-03-08 14:57 | Outpatient (AMB) | payer OTHER, SELFPAY ==
--- NOTE | 2024-03-08 15:06 | A.OFFVIS_ITS ---
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 He has cardiomyopathy and atrial fibrillation. He previously was cardioverted but developed atrial fibrillation. We referred him to electrophysiology for ablation. It appears he was set up for ablation but had some insurance issues and he canceled the procedure. He is saying that he is waiting for his insurance to change in October 2022. He is not taking Entresto currently because he ran out. He is denying any significant symptoms. EKG showing atrial fibrillation. He has been on amiodarone because previously our plan was to use short-term amiodarone and get him ablated and then stop the amiodarone. 10/21/2022: He returns for follow-up. He had echocardiography performed which showed EF of 35-40%. He was not consistently taking medications on last visit but has been taking medication regularly now. He is currently taking Toprol-XL 25 mg twice a day, Entresto 24-26 mg 1 tablet twice a day, Lasix 40 mg twice a day and rivaroxaban 20 mg daily. Clinically does not have any significant heart failure symptoms. Continues to be in atrial fibrillation. 06/25/2023: He returns for follow-up. He is status post ablation. EKGs showing sinus rhythm. He is taking medications regularly including metoprolol succinate, rivaroxaban, Entresto and Jardiance. He is on 40 mg twice a day IV Lasix. Clinically euvolemic. He has not had any echocardiography for many months. 03/08/2024: He returns for follow-up. Taking medications regularly. Clinically stable. He is saying he was smoking outside the other day and due to cold weather he tried to smoke quickly and then had a head james and became dizzy. He said he had to lay down and was feeling sweaty and nauseous. He said he was feeling thirsty at the same time too. He does not drink water. I think he had vasovagal event. He has not had any further symptoms since then. Denying chest pain or shortness of breath. He is here for preop cardiovascular risk assessment and before colonoscopy. [facility] Medical History Chronic back pain Atrial fibrillation Surgical History S/P ablation of accessory bypass tract Hx of lumbar discectomy Family History Mother Irregular heart beat Father No problems noted. Social History Household Members Other:: single, 1 adult child, [facility] Housing: House Alcohol intake: never Patient Tobacco Use Status: Current everyday Tobacco user Tobacco use type: Cigarette Cigarette Packs Per Day: 0.5 Cigarettes Per Day: 10 Years Smoked: 40 +/- e-Cigarette/Vaping Use: Never Used service: No Current occupational status: employed Cognitive needs: No Hearing needs: No Vision needs: No Review of Systems Const Denies chills, Denies fatigue, Denies fever(s), Denies frequent falls, Denies weakness, Denies weight gain and Denies weight loss ENT Denies dizziness Card Denies chest pain, Denies leg edema, Denies lightheadedness, Denies palpitations, Denies dyspnea and Denies dyspnea on exertion Resp Denies cough, Denies dyspnea and Denies dyspnea on exertion GI Denies hematochezia Musc Denies abnormal gait, Denies muscle weakness, Denies numbness, Denies radiating pain into limb and Denies tingling Neuro Denies abnormal gait, Denies dizziness, Denies frequent falls, Denies numbness, Denies tingling and Denies weakness Endo Denies fatigue and Denies palpitations Physical Exam Vital Signs: Last Vital Signs Pulse 69 03/08/24 15:08 BP 110/60 03/08/24 15:08 BMI result Body Mass Index 36.2 GENERAL APPEARANCE: in no acute distress, pleasant. NECK: no carotid bruit, no jugular venous distention. SKIN: no suspicious lesions, warm and dry. HEART: no murmurs, regular rate and rhythm. LUNGS: clear to auscultation bilaterally. ABDOMEN: soft, nontender. PERIPHERAL PULSES: equal. NEUROLOGIC: No gross deficits, AAO X 3 Office Procedures EKG Details: Sinus rhythm 69 beats per minute, rightward axis, QTC 430 milliseconds. [id number], Complete Results Reviewed Results Reviewed: [address] [address] Holter Monitor Report Signed Patient: Stef Cordova MR#: [id number] : 1970 Acct:[id number] Age/Sex: 53 / M ADM Date: 01/23/24 Loc: [facility] Attending Dr: Cony Martini MD Ordering Physician: Cony Martini MD Date of Service: 01/23/24 Procedure(s): ECG 7 day holter monitor Accession Number(s): cc: Cony Martini MD~ * Total monitoring time 7 days. * Underlying rhythm is sinus with an average rate of 75/Min. * Rare supraventricular ectopy. * Rare ventricular ectopy. * No significant pauses or high-grade AV blocks. * Patient markers noted without any arrhythmias. * No diary events. Dictated By: Sandeep Vaughan MD Signed By: <Electronically signed by Sandeep Vaughan MD> 02/22/24 1218 Transthoracic Echocardiogram Patient (Last, First, Middle): Stef Cordova A Gender: Male Date of : 1970 Age: 53 Procedure Date: 07/15/2023 Procedure Type: Transthoracic Echocardiogram Location: OP Height: 185.42 cm Weight: 119.3 kg BSA: 2.42 m2 Heart Rate: bpm BP: 102 / 62 mmHg Branch Operations Coordinator: TO Referring MD: Celio Ndiaye MD Bee Keeper: Carlos Orlando MD Symptoms: I42.9 - Cardiomyopathy, unspecified Study Quality: Fair, contrast ECG Rhythm: Sinus Conclusions: - 1. Normal LV ejection fraction 55-60% 2. Bicuspid aortic valve with mild aortic stenosis 3. Mildly dilated ascending aorta 4. No gross pericardial effusion Findings Procedure Information Contrast agent, definity, is being given per protocol without apparent complications. Left Ventricle Normal left ventricular size, thickness, and systolic function. The visually estimated ejection fraction is between 55-60%. Spectral Doppler is indicative of a normal filling pattern. Right Ventricle Normal right ventricular cavity size and systolic function. Atria The left atrium is likely dilated. Interatrial shunt cannot be excluded. The right atrium is normal in size. Aortic Valve There is a bicuspid aortic valve. There is mild aortic valve stenosis. The peak aortic gradient is 18 mmHg.The mean gradient is 11 mmHg. There is no aortic valve regurgitation. Mitral Valve Normal mitral valve structure and function. There is trace mitral valve regurgitation. There is no mitral valve stenosis. Pulmonic Valve The pulmonic valve was not well visualized. Tricuspid Valve Likely normal tricuspid valve structure and function. Tricuspid regurgitation envelope is inadequate for calculation of right ventricular systolic pressure. Normal right atrial pressure. Great Vessels The pulmonary artery was not well visualized. There is mild dilatation of the ascending aorta measuring 3.70 cm. Venous The inferior vena cava is normal in size and collapses greater than 50% with inspiration. Pericardium/Pleural There is no evidence of pericardial effusion. Prior Study Comparison Changes noted compared to prior study dated: 07/16/2022. LV systolic function is normal. There is mild aortic stenosis noted Measurements 2D Linear Measurements RVIDd: 4.56 IVSd: 0.87 0.6-0.9/0.6-1.0 cm LVIDd: 5.75 3.9-5.3/4.2-5.9 cm LVIDd Index: 2.38 2.4-3.2/2.2-3.1 cm/m2 LVIDs: 3.79 2.0-3.6 cm LVPWd: 0.94 0.7-1.1 cm LA Diam: 4.10 2.7-3.8/3.0-4.0 cm LAIDs Index: 1.69 1.5-2.3 cm/m2 LV Mass: 250.05 67-162/88-224 g LV Mass Index: 103.33 43-95/49-115 g/m2 LVOT Diam: 2.50 3.0+(-)1.3 cm 2D Volumes LA ESV A/L: 31.90 22-52/18-58 ML/M2 RA ESV A/L: 26.50 19-21 ML/M2 2D Systolic Function EF Teich: 62.20 >55% EF 4C: 56.50 >55% EF 2C: 60.50 >55% EF BiP: 58.60 >55% Mitral Valve MV Pk E: 0.72 MV PK A: 0.37 MV Decel Time: 243.00 E/A: 1.90 E'Lateral: 9.36 E'Medial: 7.18 E/E' Med: 10.00 E/E' Lat: 7.60 PHT: 71.00 MVA PHT: 3.10 Decel Mcdonald: 2.95 Aortic Valve AoV Pk Stevie: 2.13 AoV Mn Stevie: 1.58 AoV VTI: 0.49 AoV Pk Grad: 18.00 Aov Mn Grad: 11.00 NGA Cont.VTI: 1.33 LVOT LVOT Pk Stevie: 0.62 LVOT Mn Stevie: 0.46 LVOT VTI: 0.13 LVOT Pk Grad: 2.00 LVOT Mn Grad: 1.00 LVOT Diam: 2.50 LVOT Area: 4.91 Diastolic Function MV Pk E: 0.72 MV Pk A: 0.37 E/A: 1.90 E'Medial: 7.18 E/E' Med: 10.00 E' Laterial: 9.36 E/E' Lat: 7.60 IVC Diam Exp: 1.46 Right Ventricle TAPSE (mm): 2.62 TVS' Stevie: 13.90 Tricuspid Valve RA Press: 3.00 IVC Diam Exp: 1.46 Great Vessels Aorta Sinus of Valsalva: 4.30 2.0-3.5 cm Ao Asc: 3.70 2.1-3.4 cm Ao Arch: 3.30 Updated in Other Vendor System with Status of Final Carlos Orlando MD electronically signed on 07/20/2023 12:57:33 PM with status of Final Dictated By: Carlos Orlando MD Signed By: <Electronically signed by Carlos Orlando MD in OV> 07/20/23 1257 DD/ 1511 TD/TT: Signal System Testing Maintainer: Assessment & Plan Assessment & Plan (1) Atrial fibrillation: Comment: 06/2021, status post catheter ablation June 03 Code(s): I48.91 - Unspecified atrial fibrillation Category: Medical Plan Pleasant 53 year gentleman who is here for follow-up. He has background history of cardiomyopathy in the setting of alcohol use and atrial fibrillation. He is status post ablation at this stage in his ejection fraction has improved back to normal. Recent monitoring did not show any episodes of atrial fibrillation. Taking medications regularly. He is on Xarelto for anticoagulation. He needs elective colonoscopy. He is intermediate risk for perioperative complications and can proceed. He can hold Xarelto for few days. He is in sinus rhythm on EKG. Thank you for allowing me to participate in the care of your patient. Please feel free to contact me if you have any questions. Coding Level of Care Code Est Pt Level 4 (46747) Diagnoses Atrial fibrillation I48.91 CPT Codes EKG - CPT: 85610-[id number], Complete ([id number])
[2024-03-08 15:08] VITALS: BP 110/60; PULSE 69; BMI 36.2
== END 2024-03-08 15:33 | disposition home or self-care (01) ==
PROVIDERS: Visit Provider Internal Medicine Cardiovascular Disease
DX: I48.91 Unspecified atrial fibrillation (principal)
CPT/HCPCS: 93010; 99214

== ENCOUNTER → 2024-03-08 14:57 | Outpatient (BNVA) | payer OTHER, SELFPAY | PROVIDERS: Visit Provider Internal Medicine Cardiovascular Disease | DX: I42.9 Cardiomyopathy, unspecified (principal); I48.91 Unspecified atrial fibrillation; Z79.01 Long term (current) use of anticoagulants | CPT/HCPCS: 93005 ==

== ENCOUNTER 2024-09-06 09:51 | Outpatient (AMB) | payer OTHER, SELFPAY ==
[2024-09-06 10:04] VITALS: BP 120/70; PULSE 65; BMI 34.3
--- NOTE | 2024-09-06 10:04 | A.OFFVIS_ITS ---
Vital Signs 09/06/24 10:04 Height 6 ft 1 in Weight 260 lb 2.327 oz BMI 34.3 BP 120/70 Blood Pressure Location Lt brachial Position Sitting Pulse 65 Intake Visit Reasons: 6m follow up Intake Note: 6 month follow-up feeling ok ? 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 He has cardiomyopathy and atrial fibrillation. He previously was cardioverted but developed atrial fibrillation. We referred him to electrophysiology for ablation. It appears he was set up for ablation but had some insurance issues and he canceled the pr ocedure. He is saying that he is waiting for his insurance to change in October 2022. He is not taking Entresto currently because he ran out. He is denying any significant symptoms. EKG showing atrial fibrillation. He has been on amiodarone because previously our plan was to use short-term amiodarone and get him ablated and then stop the amiodarone. 10/21/2022: He returns for follow-up. He had echocardiography performed which showed EF of 35-40%. He was not consistently taking medications on last visit but has been taking medication regularly now. He is currently taking Toprol-XL 25 mg twice a day, Entresto 24-26 mg 1 tablet twice a day, Lasix 40 mg twice a day and rivaroxaban 20 mg daily. Clinically does not have any significant heart failure symptoms. Continues to be in atrial fibrillation. 06/25/2023: He returns for follow-up. He is status post ablation. EKGs showing sinus rhythm. He is taking medications regularly including metoprolol succinate, rivaroxaban, Entresto and Jardiance. He is on 40 mg twice a day IV Lasix. Clinically euvolemic. He has not had any echocardiography for many months. 03/08/2024: He returns for follow-up. Taking medications regularly. Clinically stable. He is saying he was smoking outside the other day and due to cold weather he tried to smoke quickly and then had a head james and became dizzy. He said he had to lay down and was feeling sweaty and nauseous. He said he was feeling thirsty at the same time too. He does not drink water. I think he had vasovagal event. He has not had any further symptoms since then. Denying chest pain or shortness of breath. He is here for preop cardiovascular risk assessment and before colonoscopy. 09/06/2024: He is here for follow-up. Continues to do well since the ablation and is in sinus rhythm. Blood pressure well controlled. He has stopped drinking completely. [facility] Medical History (Reviewed 02/02/24 @ 15:04 by Rajinder Adkins [facility] [place]) Chronic back pain Atrial fibrillation Surgical History S/P ablation of accessory bypass tract Hx of lumbar discectomy Family History Mother Irregular heart beat Father No problems noted. 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 Housing: House Alcohol intake: never Patient Tobacco Use Status: Current everyday Tobacco user Tobacco use type: Cigarette Cigarette Packs Per Day: 0.5 Cigarettes Per Day: 10 Years Smoked: 40 +/- e-Cigarette/Vaping Use: Never Used service: No Current occupational status: employed Cognitive needs: No Hearing needs: No Vision needs: No Review of Systems Const Denies chills, Denies fatigue, Denies fever(s), Denies frequent falls, Denies weakness, Denies weight gain and Denies weight loss ENT Denies dizziness Card Denies chest pain, Denies leg edema, Denies lightheadedness, Denies palpitations, Denies dyspnea, Denies dyspnea on exertion, Denies orthopnea and Denies other (loss of consciousness) Resp Denies cough, Denies dyspnea and Denies dyspnea on exertion GI Denies hematochezia and Denies change in stool character Musc Denies abnormal gait, Denies muscle weakness, Denies numbness, Denies radiating pain into limb and Denies tingling Neuro Denies abnormal gait, Denies dizziness, Denies frequent falls, Denies numbness, Denies tingling and Denies weakness Endo Denies fatigue and Denies palpitations Physical Exam Vital Signs: Last Vital Signs Pulse 65 09/06/24 10:04 BP 120/70 09/06/24 10:04 BMI result Body Mass Index 34.3 GENERAL APPEARANCE: in no acute distress, pleasant. NECK: no carotid bruit, no jugular venous distention. SKIN: no suspicious lesions, warm and dry. HEART: no murmurs, regular rate and rhythm. LUNGS: clear to auscultation bilaterally. ABDOMEN: soft, nontender. PERIPHERAL PULSES: equal. NEUROLOGIC: No gross deficits, AAO X 3 Assessment & Plan Assessment & Plan (1) Atrial fibrillation: Comment: 06/2021, status post catheter ablation June 03 Code(s): I48.91 - Unspecified atrial fibrillation Category: Medical (2) HFrEF (heart failure with reduced ejection fraction): Comment: ETOH related cardiomyopathy and A fib with RVR EF 15-20% 06/2021, EF 40% 06/2022, S/P CATHETER ABLATION 05/2023 by , Echo 07/2023 EF 55-60%, BICUSPID AORTIC VALVE, MILD AORTIC STENOSIS. Ascending aorta dilatation. Patient can not afford Jardiance and Entresto Code(s): I50.20 - Unspecified systolic (congestive) heart failure Category: Medical Plan Pleasant 54 year gentleman with background history of cardiomyopathy in the setting of alcohol use and atrial fibrillation. He has stopped drinking completely. He is currently post ablation and doing well. On rivaroxaban for anticoagulation. I think his medications are long-term at this point should not be stopped. He was previously on Jardiance and is asking whether he can restart that. We will send a script for him. He will check with insurance about coverage of Jardiance. Otherwise stable and doing well. Same medications for now. Follow-up in 6 months. Thank you for allowing me to participate in the care of your patient. Please feel free to contact me if you have any questions. Medications: New empagliflozin (Jardiance) 10 mg PO DAILY 30 tabs 0RF I50.20 - Unspecified systolic (congestive) heart failure Coding Level of Care Code Est Pt Level 4 (94652) Diagnoses Atrial fibrillation I48.91 HFrEF (heart failure with reduced ejection fraction) I50.20
== END 2024-09-06 10:29 | disposition home or self-care (01) ==
LOC: HO.HCS 09:51
PROVIDERS: Visit Provider Internal Medicine Cardiovascular Disease
DX: I48.91 Unspecified atrial fibrillation (principal); I50.20 Unspecified systolic (congestive) heart failure
CPT/HCPCS: 99214

== ENCOUNTER 2024-12-09 09:22 | Outpatient (AMB) | payer OTHER, SELFPAY ==
[2024-12-09 09:23] VITALS: BP 110/70; PULSE 80; TEMP 36.7; O2SAT 98; BMI 33.2
--- NOTE | 2024-12-09 09:23 | AM.OFFWIN_ITS ---
Intake Vital Signs 12/09/24 09:23 Height 6 ft 1 in Weight 252 lb BMI 33.2 BP 110/70 Blood Pressure Location Rt brachial Position Sitting Pulse 80 Pulse Source Pulse Oximeter Temp 98.1 F Temp Source Oral Pulse Oximetry (%) 98 Oxygen Delivery Method Room Air Intake Visit Reasons: EP-dizziness, light head, dehydrated Intake Note: EP complains of a persistent confusion and light headiness, temporary memory lose (forgetting his tasks or what he is performing) which associates with less quantity of water intake. Patient Tobacco Use Status: Current everyday Tobacco user Allergies No Known Allergies Allergy (Verified 12/09/24 09:36) Do you need a note to return to daycare/school/sports/work: Yes HPI HPI Comments History of Present Illness Details History of Present Illness - The patient is a 54-year-old male pres enting with symptoms of dehydration. - Reports inability to drink water at wo rk due to lack of access and restrictions. - Experiences dizziness, muscle cramps, and leg spasms attributed to dehydration. - History of diuretic use for cardiac-re lated fluid retention, with temporary discontinuation due to dehydration concerns. - He did stop his diuretic for a few wee ks to see if his symptoms resolved, however he did restart due to fluid in his legs. - He urinates several times a day/ - He states that he does drink fluids on his breaks and after work drinks all evening. - Reports nausea, vomiting, and blurred vision associated with hydration status. - Describes chest discomfort as muscular rather than cardiac. - Attempts to resolve hydration issue wi th employer have been unsuccessful. - He denies weakness, SINGH, dry skin, abd pain, constipation, vomiting, or visual changes. Physical Exam General: Cooperative, healthy appearing, comfortable, no acute distress and well developed Orientation: Patient oriented x3 Limitations: No limitations Head: Normal to inspection Ears: Hearing grossly normal bilaterally Nose: Normal external nose present Face and sinus: Normal facial exam Eyes: Appearance normal, both eyes and all related structures. PERRLA, EOMI. No nystamus noted. Neck: Normal visual inspection and Yes full ROM. No carotid bruits noted. Respiratory: Normal respiratory effort and able to speak in complete sentences. Clear to auscultation bilaterally. No w/r/r noted. Cardiovascular: Regular rate and rhythm. Normal S1 and S2. No m/r/g noted. GI: Normal to inspection. Soft to palpation and nontender. No guarding or rebound tenderness noted. Skin: No rashes or lesions noted. No tenting noted. Neuro: Patient oriented x3. CN II-XII intact. Extremities: Trace edema noted in the legs. Patient was informed and verbally consented to the use of an ambient scribe for clinic note documentation during this visit. [facility] Medical History Chronic back pain Atrial fibrillation Surgical History S/P ablation of accessory bypass tract Hx of lumbar discectomy Family History Mother Irregular heart beat Father No problems noted. 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 Housing: House Alcohol intake: never Patient Tobacco Use Status: Current everyday Tobacco user Tobacco use type: Cigarette Cigarette Packs Per Day: 0.5 Cigarettes Per Day: 10 Years Smoked: 40 +/- e-Cigarette/Vaping Use: Never Used service: No Current occupational status: employed Cognitive needs: No Hearing needs: No Vision needs: No Review of Systems Const All systems reviewed & are unremarkable except as noted in HPI and below Physical Exam Vital Signs: Last Vital Signs Temp 98.1 F 12/09/24 09:23 Pulse 80 12/09/24 09:23 BP 110/70 12/09/24 09:23 Pulse Ox 98 12/09/24 09:23 Oxygen Delivery Method Room Air 12/09/24 09:23 BMI result Body Mass Index 33.2 Results AMB Urinalysis, Automated UA Leukoctes 0 Darron/uL Last Edit by Em Padilla CMA on 12/09/24 10:27 UA Nitrite Negative Last Edit by Em Padilla CMA on 12/09/24 10:27 UA Urobilinogen 1 mg/dL Last Edit by Em Padilla CMA on 12/09/24 10:27 UA Protein 0 mg/dL Last Edit by Em Padilla CMA on 12/09/24 10:27 UA pH 6.0 Last Edit by Em Padilla, ANA on 12/09/24 10:27 UA Blood 0 Ziyad/uL Last Edit by Em Padilla, ANA on 12/09/24 10:27 UA Specific [place] 1.015 Last Edit by Em Padilla, ANA on 12/09/24 10 :27 UA Ketone Negative Last Edit by Em Padilla, ANA on 12/09/24 10:27 UA Bilirubin 0 mg/dL Last Edit by Em Padilla, ANA on 12/09/24 10:27 UA Glucose 0 mg/dL Last Edit by Em Padilla, ANA on 12/09/24 10:27 Assessment & Plan Assessment & Plan (1) Dizziness: Code(s): R42 - Dizziness and giddiness Plan Most likely Dehydration vs electrolyte abnormality vs urine in the office was negative and had no ketones HbA1c is 5.3 plan - Plan to perform urine and A1c to assess hydration status and rule out other causes. - Recommendation to consult with a occupational health manager regarding medication adjustments to prevent dehydration. - Advised to ensure adequate fluid intake outside of work hours. - Continued use of diuretics as prescribed by the occupational health manager. - Monitoring of symptoms and follow-up with occupational health manager as needed. - wants a work note to be able to drink fluids while at work throughout the day - needs to establish care with a PCP Orders: Orders AMB Urinalysis Automated Today R42 - Dizziness and giddiness AMB Hemoglobin A1c Today R42 - Dizziness and giddiness Coding Level of Care Code Est Pt Level 4 (57873) Diagnoses Dizziness R42
== END 2024-12-09 10:36 | disposition home or self-care (01) ==
PROVIDERS: Visit Provider Physician Assistant Medical
DX: R42 Dizziness and giddiness (principal)

== ENCOUNTER → 2024-12-09 09:22 | Outpatient (BNVA) | payer OTHER, SELFPAY | PROVIDERS: Visit Provider Physician Assistant Medical | DX: R42 Dizziness and giddiness (principal); R25.2 Cramp and spasm; Z13.1 Encounter for screening for diabetes mellitus | CPT/HCPCS: 81003; 83036 ==